=== PATIENT | male | born 1975 ===

== ENCOUNTER 2016-04-27 05:19 | Inpatient (IN) | payer MEDICAID, OTHER ==
--- NOTE | 2016-04-27 05:33 | Emergency Department Report ---
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 Last seen by staff at 1 AM walking around. Patient complains of left arm weakness only. States he had a history of previous CVA affecting his left side but made a full recovery. No pain reported. No aggravating or alleviating factors reported. - Related Data Allergies/Adverse Reactions: Allergies Allergy/AdvReac Type Severity Reaction Status Date / Time No Known Allergies Allergy Verified 04/27/16 05:56 ED Review of Systems ROS: Stated complaint: POSSIBLE STROKE Other details as noted in HPI Comment: All other systems reviewed and negative Other: Constitutional: No fevers chills Eyes: No eye pain visual changes ENT: No ear pain or throat pain Neck: Denies pain Respiratory: Denies cough wheezing shortness of breath Cardiovascular: Denies chest pain, palpitations, syncope GI: Denies abdominal pain, nausea, vomiting, diarrhea : Denies dysuria Musculoskeletal: Denies back pain, joint swelling Skin: Denies rash, lesions, erythema Neurologic: Denies headache Psychiatric: Denies suicidal ideation, hallucinations ED Neuro Physical Exam - General Suspected Stroke: Yes - NIHSS Assessment Interval: Baseline 1a. Level of Consciousness: alert 1b. LOC Questions: answers correctly 1c. LOC Commands: performs no tasks correctly 2. Best Gaze: normal 3. Visual: no visual loss 4. Facial Palsy: normal symmetrical movement 5b. Motor Arm Right: no drift 5a. Motor Arm Left: drift 6a. Motor Leg Left: no drift 6b. Motor Leg Right: no drift 7. Limb Ataxia: absent 8. Sensory: normal 9. Best Language: no aphasia 10. Dysarthria: normal 11. Extinction/Inattention: no abnormality Total Score: 3 Stroke Severity: Minor Stroke - Other Other exam information: General: No limitations, patient is alert in no acute distress Head exam: Atraumatic, normocephalic Eyes exam: Normal appearance, pupils equal reactive to light, extraocular movements intact ENT: Moist mucous membrane, normal oropharynx Neck exam: Normal inspection, full range of motion, no meningismus nontender Respiratory exam: Clear to auscultation bilateral, no wheezes, rales, crackles Cardiovascular: Normal rate and rhythm, normal heart sounds Abdomen: Soft, nondistended, and nontender, with normal bowel sounds, no rebound, or guarding Extremity: Full range of motion normal inspection no deformity Back: Normal Inspection, full range of motion, no tenderness Neurologic: Alert, oriented x3, see nihs Psychiatric: normal affect, normal mood Skin: Warm, dry, intact ED Course Vital Signs 04/27/16 04/27/16 04/27/16 05:45 06:02 06:03 Temperature 98.6 F Pulse Rate 186 H 108 H 98 H Respiratory 20 20 Rate Blood Pressure 143/102 143/103 Blood Pressure 143/102 128/100 [Left] O2 Sat by Pulse 98 98 Oximetry - Reevaluation(s) Reevaluation #1: 04/27/16 06:19 Upon return back from CT patient noted to have nonsustained V. tach. Amiodarone 150 mg given initially an EKG repeated. More obvious sinus rhythm with second EKG. Lopressor 5 mg IV given as recommended by cardiology 04/27/16 06:19 - Consultations Consultation #1: 04/27/16 05:[address] Mccoy neurologist agrees outside tpa window. Rec admission, ct angio. May call back if ct angio positive Consultation #2: 04/27/16 5:54 AM Case was discussed with Dr. Gaspar colon therapist nuclear unit operator suggested not to give amiodarone but to treat patient Lopressor - Lab Data Result diagrams: 04/27/16 05:25 04/27/16 05:25 Lab Results 04/27/16 04/27/16 04/27/16 Range/Units 05:25 05:25 05:25 WBC 10.4 (4.5-11.0) K/mm3 RBC 4.85 (3.65-5.03) M/mm3 Hgb 14.5 (11.8-15.2) gm/dl Hct 44.7 (35.5-45.6) % MCV 92 (84-94) fl MCH 30 (28-32) pg MCHC 32 (32-34) % RDW 15.1 (13.2-15.2) % Plt Count 330 (140-440) K/mm3 Lymph % (Auto) 21.9 (13.4-35.0) % [place] % (Auto) 8.0 H (0.0-7.3) % Eos % (Auto) 4.8 H (0.0-4.3) % Baso % (Auto) 1.0 (0.0-1.8) % Lymph # 2.3 (1.2-5.4) K/mm3 [place] # 0.8 (0.0-0.8) K/mm3 Eos # 0.5 H (0.0-0.4) K/mm3 Baso # 0.1 (0.0-0.1) K/mm3 Seg Neutrophils % 64.3 (40.0-70.0) % Seg Neutrophils # 6.7 (1.8-7.7) K/mm3 Sodium 138 (137-145) mmol/L Potassium 3.9 (3.6-5.0) mmol/L Chloride 99.1 (98-107) mmol/L Carbon Dioxide 26 (22-30) mmol/L Anion Gap 17 mmol/L BUN 15 (9-20) mg/dL Creatinine 1.4 (0.8-1.5) mg/dL Estimated GFR 56 ml/min BUN/Creatinine Ratio 10.71 % Glucose 119 H (75-100) mg/dL Calcium 8.9 (8.4-10.2) mg/dL Magnesium 1.8 (1.7-2.3) mg/dL Total Creatine Kinase 234 H (55-170) units/L CK-MB (CK-2) 3.9 (0.0-4.0) ng/mL CK-MB (CK-2) Rel Index 1.6 (0-4) Troponin T 0.033 H (0.00-0.029) ng/mL Triglycerides 101 (2-149) mg/dL Cholesterol 178 (50-199) mg/dL LDL Cholesterol Direct 112 (50-130) mg/dL HDL Cholesterol 46 (40-59) mg/dL Cholesterol/HDL Ratio 3.86 % - EKG Data -: EKG Interpreted by Me (possible A. fib 198 with rapid ventricular response wide QRS) 04/27/16 06:21 Repeat EKG after amiodarone shows sinus tach with nonsustained V. tach, LVH - Radiology Data Radiology results: report reviewed (CT head: No acute finding) - Medical Decision Making Patient requires admission to the hospital for cardiac and neurologic evaluation. Aspirin, amiodarone, and Lopressor given in the ED - Differential Diagnosis CVA, TIA, ICH, SVT, V. tach, A. fib Critical Care Time: Yes Critical care time in (mins) excluding proc time.: 20 Critical care attestation.: If time is entered above; I have spent that time in minutes in the direct care of this critically ill patient, excluding procedure time. ED Disposition Clinical Impression: Left arm weakness, Nonsustained ventricular tachycardia, Elevated troponin Disposition: OP ADMITTED IP TO THIS HOSP Is pt being admited?: Yes Does the pt Need Aspirin: Yes Condition: Stable Time of Disposition: 06:18 (Dr boswell/hosp)
[2016-04-27 05:37] LABS: Eosinophils % (Auto) 4.8 % (0.0-4.3); Hematocrit 44.7 % (35.5-45.6); Hemoglobin 14.5 gm/dl (11.8-15.2); Mean Corpuscular HGB Conc 32 % (32-34); Mean Corpuscular Hemoglobin 30 pg (28-32); Mean Corpuscular Volume 92 fl (84-94); Platelet Count 330 K/mm3 (140-440); Red Blood Count 4.85 M/mm3 (3.65-5.03); Red Cell Distribution Width 15.1 % (13.2-15.2); White Blood Count 10.4 K/mm3 (4.5-11.0)
[2016-04-27] MEDS ORDERED: CORDARONE 150 MG in D5W 100 ML IV ONE (05:50)
[2016-04-27 05:53] LABS: Creatine Kinase MB 3.9 ng/mL (0.0-4.0)
[2016-04-27] MEDS ORDERED: LOPRESSOR IV ONE ×3 (05:53→15:00)
--- NOTE | 2016-04-27 05:53 | Cat Scan Report ---
FINAL REPORT PROCEDURE: CT HEAD/BRAIN WO CON TECHNIQUE: Computerized tomography of the head was performed without contrast material. HISTORY: Suspected acute stroke. Acute neurologic deficits. COMPARISON: No prior studies are available for comparison. FINDINGS: Skull and scalp: Normal. Paranasal sinuses: Normal. Ventricles and subarachnoid spaces: Normal. Cerebrum: No evidence of hemorrhage, acute infarction or mass . Cerebellum and brainstem: No evidence of hemorrhage, acute infarction or mass. Vasculature: Normal. Comments: None. IMPRESSION: Overall negative CT brain without contrast with no CT evidence of intracranial hemorrhage acute finding.
[2016-04-27 05:54] LABS: BUN/Creatinine Ratio 10.71; Calcium 8.9 mg/dL (8.4-10.2); Chloride 99.1 mmol/L (98-107); Potassium 3.9 mmol/L (3.6-5.0)
[2016-04-27] MEDS ORDERED: CORDARONE 900 MG in D5W 482 ML IV SCH (06:00)
[2016-04-27 06:19] LABS: INR 0.89 (0.87-1.13)
[2016-04-27] MEDS ORDERED: ASPIRIN PO ONE (06:19)
[2016-04-27 06:20] LABS: Partial Thromboplastin Time 29.7 Sec. (24.2-36.6)
--- NOTE | 2016-04-27 06:48 | History and Physical Report ---
History of Present Illness Date of examination: 04/27/16 History of present illness: This is a 41-year-old man with a history of hypertension, coronary artery disease, CVA with no residual weakness, hypothyroidism, and her schizophrenia was brought to the emergency room for left arm weakness and slurred speech. The aide at bedside states that he was last seen at 1:30 asking for a sleeping pill. At 4:30 he was seen again complaining of left arm weakness, his speech was slurred, he was very diaphoretic and his blood pressure was very elevated. He was sent to the emergency room for further evaluation. The patient is admitted anchor for suicide ideation. In the emergency room and was found to be in nonsustained V. tach, he was given Lopressor Patient denies chest pain, palpitation, shortness of breath, cough, abdominal pain, hematochezia, dysuria, frequency, fever chills, polydipsia polyuria, hot or cold intolerance, easy bruisability, or rash or bleeding from mucosal membrane, rhinorrhea, epistaxis, earache, tinnitus, blurry vision, eye discharge , anxiety, depression. Other review of systems negative PAST SURGICAL HISTORY: CABG SOCIAL HISTORY: Admits to tobacco, marijuana, no alcohol FAMILY HISTORY: Coronary artery disease Medications and Allergies Allergies Allergy/AdvReac Type Severity Reaction Status Date / Time No Known Allergies Allergy Verified 04/27/16 05:56 Home Medications Medication Instructions Recorded Confirmed Last Taken Type Aspirin BABY CHEW TAB 81 mg PO DAILY 04/27/16 04/27/16 Unknown History Clonidine 0.2 mg PO BID 04/27/16 04/27/16 Unknown History Clopidogrel 75 mg PO DAILY 04/27/16 04/27/16 Unknown History Coreg 25 mg PO BID 04/27/16 04/27/16 Unknown History Diovan Hct 320-12.5 mg 320 mg PO DAILY 04/27/16 04/27/16 Unknown History Lasix TAB 40 mg PO DAILY 04/27/16 04/27/16 Unknown History Levothyroxine 60 mg PO QAM 04/27/16 04/27/16 Unknown History Minoxidil 5 mg PO DAILY 04/27/16 04/27/16 Unknown History Norvasc 10 mg PO DAILY 04/27/16 04/27/16 Unknown History hydrALAZINE 50 mg PO TID 04/27/16 04/27/16 Unknown History Exam - Physical Exam Narrative exam: Gen. appearance: Patient lying in bed, no apparent distress HEENT: Normocephalic, atraumatic, pupils equally round and reactive to light, extraocular movement intact, and no sclericterus,. No JVD or thyromegaly or nodule,neck supple, no carotid bruit ,mucous membranes moist, no exudate or erythema Heart: S1, S2, regular rate and rhythm Lungs: Clear to auscultation bilaterally, breathing comfortable Abdomen: Positive bowel sounds, nontender, nondistended, no organomegaly Extremity: No edema, cyanosis, clubbing Skin: No rash, nodules, warm, dry Neuro: Oriented 3, cranial nerves II-12 intact, speech is slurred, left arm 3/ 5 - Constitutional Vitals: Temp Pulse Resp BP Pulse Ox 98.6 F 98 H 28 H 128/100 99 04/27/16 05:45 04/27/16 06:03 04/27/16 06:25 04/27/16 06:03 04/27/16 06:25 Results - Labs CBC & Chem 7: 05/06/16 04:26 05/02/16 04:44 Labs: Abnormal lab results 04/27/16 04/27/16 04/27/16 Range/Units 05:25 05:25 05:25 [place] % (Auto) 8.0 H (0.0-7.3) % Eos % (Auto) 4.8 H (0.0-4.3) % Eos # 0.5 H (0.0-0.4) K/mm3 PT 11.9 L (12.2-14.9) Sec. Glucose 119 H (75-100) mg/dL Total Creatine Kinase 234 H (55-170) units/L Troponin T 0.033 H (0.00-0.029) ng/mL - Imaging and Cardiology EKG: image reviewed (nonsustained V. tach, 128) CT Scan - head: report reviewed Assessment and Plan Acute CVA Nonsustained V. tach Suicidal ideation Hypertension Hyperlipidemia Hypothyroidism Schizophrenia Admits medicine Obtain MRI, MRA of the head and neck, echo Do neurochecks, swallow screen, consult neurology Consult physical, occupational, speech therapy Check cardiac enzymes, consult cardiology Start aspirin, statin, DVT prophylaxis Start beta jennifer per cardiology Start IV hydralazine as neeed for further blood pressure control Placed on suicide precaution, patient is 1013 Continue appropriate outpatient medications
[2016-04-27] MEDS ORDERED: APRESOLINE IV PRN (06:51)
--- NOTE | 2016-04-27 07:48 | Cat Scan Report ---
CTA NECK: HISTORY: Left arm weakness, CVA. TECHNIQUE: Helical CT following IV contrast. Sagittal and coronal reformatted images. 3D volume rendering technique. Stenosis was calculated using NASCET criteria. FINDINGS: The visualized aortic arch, innominate artery and proximal bilateral subclavian arteries are widely patent. Both carotid systems are patent throughout with less than 10% stenosis. No evidence for occlusion, dissection or aneurysmal dilatation. Minimal partially calcified plaques are noted in both carotid bulbs. The cervical vertebral arteries are patent as well. The left vertebral artery arises from the aortic arch and is nondominant. IMPRESSION: Unremarkable CTA of the neck. No hemodynamically significant stenosis or occlusion.
--- NOTE | 2016-04-27 07:57 | Cat Scan Report ---
CTA HEAD: HISTORY: Left arm weakness, CVA. TECHNIQUE: Helical CT images following IV contrast with 0.625 mm reconstructions. Sagittal and coronal reconstructions. Rotational MIP images. FINDINGS: A focal abrupt occlusion is suspected in the distal, small branch of the right MCA this appears to be within the right M4 segment. This is best demonstrated on images 439, series 2. The remainder of the right MCA distribution appears patent with less than 20% stenosis. The right NAOMI, left NAOMI, and left MCA are widely patent with less than 20% stenosis. There appears to be occlusion of the distal vertebral arteries bilaterally and proximal one half of the basilar artery. There is reconstitution of flow in the distal basilar artery from multiple small collateral vessels around the brainstem and cerebellar vermis. There are large bilateral posterior communicating arteries which are widely patent. The bilateral alteration tailor apprentice are widely patent with less than 20% stenosis. Impression: A focal occlusion is suspected in a distal, small branch of the right MCA within the right M4 segment, see above. These findings were relayed to the patient's RN, Aaron Guevara at 0740 hours. The patient was in the emergency room but had not yet been assigned to a hospitalist. The patient was reported to be outside the window for TPA administration. 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 Most of the posterior circulation appears to arise from large bilateral posterior communicating arteries.
[2016-04-27] MEDS ORDERED: SODIUM CHLORIDE FLUSH SYRINGE 10 ML IV PRN (09:49)
[2016-04-27] MEDS ORDERED: ZOFRAN IV PRN (09:49)
[2016-04-27] MEDS ORDERED: ASPIRIN PO SCH (10:00)
[2016-04-27] MEDS ORDERED: LOVENOX SUB-Q SCH (10:00)
[2016-04-27] MEDS ORDERED: COREG PO SCH ×2 (10:00)
--- NOTE | 2016-04-27 12:16 | Admit Criteria Form ---
Admission Criteria Documentation: TELEMETRY CARE Telemetry Admission Guidelines (Place 'X' for any and all applicable criteria): Admission to telemetry [A] may be indicated for ANY ONE of the following(1)(2)(3 )(4)(5): [ ]I. Cardiac disease, including ANY ONE of the following (9)(10)(11)(12)(13 ): [ ]a) Postacute CA [ ]b) Low-risk patients with ST-segment elevation CA who have undergone successful percutaneous coronary intervention [ ]c) Unstable angina [ ]d) Suspected CA (until it is ruled out) [ ]e) Post cardiac surgery (first 48 to 72 hours unless complications occur) [ ]f) Acute arrhythmias (including significant tachycardia or bradycardia) [B] [ ]g) Firing of an implantable cardioverter defibrillator [C] [ ]h) Suspected pacemaker or implantable cardioverter defibrillator malfunction (10) [ ]i) New administration or adjustment of an antiarrhythmic drug [D ] [ ]j) Child admitted for acute congestive heart failure [ ]j) Long QT syndrome [ ]k) Advanced heart block (eg, second-degree Mobitz type II, third- degree heart block) [ ]l) Acute myocarditis or pericarditis [ ]m) Short-term (ambulatory or inpatient) monitoring after a cardiac procedure as indicated by ANY ONE of the following [E]: [ ]i) Electrophysiologic studies [ ]ii) Percutaneous coronary intervention with stent placement [ ]iii) Pacemaker placement with cardiac conduction defect [ ]iv) Implantable cardiac defibrillator placement [ ]II. Drug overdose or poisoning with substance that causes arrhythmias or QT prolongation (eg, phenothiazines, sympathomimetic agents, cyclic antidepressants, digitalis, antiarrhythmic drugs)(15) [ ]III. Short-term (ambulatory or inpatient) monitoring after therapeutic or diagnostic procedure requiring conscious sedation or anesthesia (eg, endoscopy, elective cardioversion) [X ]IV. Acute cerebrovascular even[F](18) [ ]V. Massive blood transfusion (eg, at least 10 units of packed red blood cells in 24 hours) [ ]. Variceal bleeding after endoscopy, sclerotherapy, or IV vasopressin [ ]VII. Uncorrected electrolyte abnormalities associated with an increased risk of dangerous arrhythmia [G]; examples include [ ]a) Hyperkalemia with attributable ECG changes [ ]b) Potassium greater than 6.5 mmol/L (mEq/L) in a patient without history of chronic renal disease [ ]c) Prolonged QT attributed to hypokalemia, hypomagnesemia, or hypocalcemia [ ]VIII.Unexplained syncope or other neurologic event suspected of being due to arrhythmia due to a finding that increases risk; examples include(19)(20)(21): [ ]a) High-risk ECG findings (eg, bifascicular block, bradycardia, abnormal QT interval, ventricular pre- excitation) [ ]b) History of previous syncope due to arrhythmia [ ]c) Abnormal ventricular function (eg, reduced ejection fraction ) [ ]d) Exertional or supine syncope [ ]e) Concerning syncope characteristics (eg, sudden loss of consciousness without prodrome) [ ]f) Family history of sudden [ ]g) Use of arrhythmogenic medication [ ]h) Suspected cardiac ischemia [ ]i) Known channelopathy (eg, long QT syndrome, Brugada syndrome, or catecholaminergic paroxysmal ventricular tachycardia) [ ]j) Known structural heart disease (eg, hypertrophic cardiomyopathy , severe valvular disease) [ ]k) Palpitations preceding syncope The original [employer] content created by [employer] has been revised. The portions of the content which have been revised are identified through the use of italic text or in bold, and [employer] has neither reviewed nor approved the modified material. All other unmodified content is copyright [employer]. Please see references footnoted in the original [employer] edition 2016 Admission Criteria Met: Yes
--- NOTE | 2016-04-27 12:58 | Magnetic Resonance Report ---
MRI of the brain without contrast. History: CVA/left arm weakness. Findings: There is a 9 mm focus of restricted diffusion in the medial aspect of the right cerebellar hemisphere. There is another area of restricted diffusion in the lateral aspect of the right MCA territory corresponding to the abnormality demonstrated on CT angiography performed earlier today. This area of restricted diffusion and associated edema measures 3.7 cm in maximum transverse dimension. There is a chronic lacune in the left faustina. A chronic lacunar infarct is seen in the right periventricular white matter. No additional areas of restricted diffusion are seen. There are no masses or extra-axial collections. The pituitary appears normal. The ventricles are normal in size and contour. There is evidence of mild chronic ethmoid sinus disease. Impression: 1. Acute infarcts are seen in the right lateral MCA territory and in the medial right cerebellar hemisphere as detailed above. 2. Chronic lacunar infarcts are seen in the left faustina and right periventricular white matter. Comment: These findings were given by telephone to the patient's nurse Shawn in the emergency room at 12:50 PM on April 27, 2016.
[2016-04-27] MEDS ORDERED: CORDARONE IV ONE (13:43)
--- NOTE | 2016-04-27 14:21 | Consultation ---
Addendum entered and electronically signed by SABA SMITH MD 04/27/16 19:01 : Patient is a 41-year-old man who is currently inpatient at [facility]. Was transferred to this emergency room for suspected stroke. There was slurred speech and left hemiparesis. During his emergency room course, treated with several bursts of sustained wide complex tachycardia, which prompted a cardiac consultation. The patient is a poor historian, not appear to comprehend and provide appropriate answers to questions. Review of the chart reports no chest pain, shortness of breath or palpitations or any cardiac symptoms. Currently on the telemetry unit, he appears comfortable in no acute respiratory distress. Report from the nursing staff, states that the patient has failed a swallowing evaluation. A review of his ECGs is consistent with recurrent, nonsustained ventricular tachycardia. Review of his cardiac laboratory values, appeared consistent with a non-ST elevation myocardial infarction. Recommend: We'll treat the patient with a beta jennifer, aspirin, topical nitrates and intravenous heparin. Heparin will be dosed at low intensity, in the setting of his acute CVA. Oral medications will be given at this time, due to the patient' s swallowing difficulty. Echocardiogram for left ventricular function assessment. Ultimately, invasive cardiac evaluation for his acute coronary syndrome will depend on his clinical status with respect to his acute CVA. Original Note: History of Present Illness Consult date: 04/27/16 Consult reason: other (NSVT) History of present illness: This is a 41yr old male currently an inpatient at [facility] for suicidal ideation. He was sent to this hospital with left upper extremity weakness and slurred speech. He is currently undergoing workup for acute CVA. His presenting ECG shows a non-sustained ventricular tachycardia treated with IV amiodarone and IV metoprolol while in the ED. Laboratory studies reports a normal magnesium of 1.8 and normal potassium of 3.9. Cardiac consultation requested. Medications and Allergies Allergies Allergy/AdvReac Type Severity Reaction Status Date / Time No Known Allergies Allergy Verified 04/27/16 05:56 Home Medications Medication Instructions Recorded Confirmed Last Taken Type Aspirin BABY CHEW TAB 81 mg PO DAILY 04/27/16 04/27/16 Unknown History Clonidine 0.2 mg PO BID 04/27/16 04/27/16 Unknown History Clopidogrel 75 mg PO DAILY 04/27/16 04/27/16 Unknown History Coreg 25 mg PO BID 04/27/16 04/27/16 Unknown History Diovan Hct 320-12.5 mg 320 mg PO DAILY 04/27/16 04/27/16 Unknown History Lasix TAB 40 mg PO DAILY 04/27/16 04/27/16 Unknown History Levothyroxine 60 mg PO QAM 04/27/16 04/27/16 Unknown History Minoxidil 5 mg PO DAILY 04/27/16 04/27/16 Unknown History Norvasc 10 mg PO DAILY 04/27/16 04/27/16 Unknown History hydrALAZINE 50 mg PO TID 04/27/16 04/27/16 Unknown History Active Meds: Active Medications Acetaminophen (Tylenol) 650 mg PO Q4H PRN PRN Reason: Pain, Mild (1-3) Aspirin (Aspirin) 325 mg PO QDAY [facility] Last Admin: 04/27/16 11:04 Dose: Not Given Carvedilol (Coreg) 3.125 mg PO BID [facility] Last Admin: 04/27/16 11:03 Dose: Not Given Enoxaparin Sodium (Lovenox) 40 mg SUB-Q QDAY [facility] Last Admin: 04/27/16 11:04 Dose: 40 mg Hydralazine HCl (Apresoline) 5 mg IV Q6HR PRN PRN Reason: Hypertension Ondansetron HCl (Zofran) 4 mg IV Q8H PRN PRN Reason: N/V unrelieved by Reglan Simvastatin (Zocor) 20 mg PO QHS [facility] Sodium Chloride (Sodium Chloride Flush Syringe 10 Ml) 10 ml IV PRN PRN PRN Reason: LINE FLUSH Physical Examination Vital Signs Temp Pulse Resp BP Pulse Ox 98.6 F 186 H 20 143/102 99 04/27/16 05:45 04/27/16 05:45 04/27/16 05:45 04/27/16 05:45 04/27/16 05:45 General appearance: no acute distress HEENT: Positive: PERRL Neck: Positive: trachea midline Cardiac: Positive: Reg Rate and Rhythm Lungs: Positive: Decreased Breath Sounds Results 04/27/16 05:25 04/27/16 05:25 Assessment and Plan Acute CVA Dysphagia NSVT Suicidal ideation -inpatient at [facility] Plans: Check a TSH. IV metoprolol every 4hrs for suppression of NSVT. Rectal aspirin 300mg daily. Topical nitrates every 6hrs.
--- NOTE | 2016-04-27 14:50 | Magnetic Resonance Report ---
MRA OF THE OSAGE OF [place]: HISTORY: Stroke. PROCEDURE: 3-D [id number] technique. FINDINGS: The visualized internal carotid arteries, the anterior cerebral and middle cerebral arteries are unremarkable. The area of occlusion seen on CT angiography performed today in the M4 segment of the right middle cerebral artery cannot be identified on this study due to technical factors. The vertebral arteries are occluded bilaterally with signal seen in the distal basilar artery and the posterior cerebral arteries. The posterior communicating arteries are patent. IMPRESSION: 1. 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 There is patency of the distal basilar artery and the alumni relations officer are patent with normal bilateral posterior communicating arteries. 2. The occluded right M4 segment of the MCA is not identified on this study, but is clearly identified on the CT angiogram performed today.
[2016-04-27] MEDS ORDERED: LOPRESSOR IV SCH (15:00)
[2016-04-27] MEDS ORDERED: ASPIRIN PR SCH (15:00)
[2016-04-27 16:20] LABS: Creatine Kinase MB 53.6 ng/mL (0.0-4.0)
[2016-04-27] MEDS ORDERED: HEPARIN 10,000 UNITS/10 ML IV ONE (18:58)
[2016-04-27] MEDS: LOPRESSOR IV SCH ×2 (19:47→21:49)
[2016-04-27 21:44] LABS: Hematocrit 43.8 % (35.5-45.6); Hemoglobin 14.4 gm/dl (11.8-15.2)
[2016-04-27] MEDS: ZOCOR PO SCH (21:48)
[2016-04-27] MEDS: HEPARIN/ 0.45% NACL-25,000 UNIT/500 ML 500 ML IV SCH (21:50)
[2016-04-27 21:56] LABS: INR 0.99 (0.87-1.13)
[2016-04-27 21:57] LABS: Partial Thromboplastin Time 31.3 Sec. (24.2-36.6)
[2016-04-27 22:02] LABS: Creatine Kinase MB 58.4 ng/mL (0.0-4.0)
[2016-04-28] MEDS: LOPRESSOR IV SCH ×6 (01:40→23:18)
[2016-04-28] MEDS: NITRO-BID 2% TP SCH ×5 (05:50→17:56)
[2016-04-28] MEDS: ASPIRIN PR SCH (09:44)
--- NOTE | 2016-04-28 11:01 | Progress Note ---
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 Devon Uriostegui of neurology to see patient today, continue aspirin, will obtain Dopplers of the carotids, continue heparin drip, will likely need long time anticoagulation, asa and statin 2. NSTEMI AND NONSUSTAINED V. TACH Cardiology input appreciated will treat with aspirin and beta jennifer , statin and nitrates, and heparin ggt, patient will likely benefit from an MPI versus angiogram, follow-up echocardiogram 3. Dysphagia Keep nothing by mouth, will obtain modified barium swallow 4. Suicidal Ideation maintain 1;1 sitter (came from [place]- is a resident there) History Interval history: continues to have Left arm weakness, denies ARROYO, CP , or palpitations Hospitalist Physical - Physical exam Narrative exam: General: Patient appears well in no distress HEENT: MMM, EOMI cardiac: S1-S2 heard lungs: clear to auscultation, abdomen: soft, nontender, nondistended bowel sounds positive extremities: no edema clubbing or cyanosis Skin: no rash or lesion Neuro: Slurred speech, left UE weakness - Constitutional Vitals: Temp Pulse Resp BP Pulse Ox 98.2 F 80 22 146/96 100 04/28/16 08:45 04/28/16 09:44 04/28/16 08:45 04/28/16 09:44 04/28/16 08:45 General appearance: Present: no acute distress Results - Labs CBC & Chem 7: 04/27/16 21:13 04/27/16 05:25 Labs: Laboratory Last Values WBC 10.4 K/mm3 (4.5-11.0) 04/27/16 05:25 RBC 4.85 M/mm3 (3.65-5.03) 04/27/16 05:25 Hgb 14.4 gm/dl (11.8-15.2) 04/27/16 21:13 Hct 43.8 % (35.5-45.6) 04/27/16 21:13 MCV 92 fl (84-94) 04/27/16 05:25 MCH 30 pg (28-32) 04/27/16 05:25 MCHC 32 % (32-34) 04/27/16 05:25 RDW 15.1 % (13.2-15.2) 04/27/16 05:25 Plt Count 324 K/mm3 (140-440) 04/27/16 21:13 Lymph % (Auto) 21.9 % (13.4-35.0) 04/27/16 05:25 [place] % (Auto) 8.0 % (0.0-7.3) H 04/27/16 05:25 Eos % (Auto) 4.8 % (0.0-4.3) H 04/27/16 05:25 Baso % (Auto) 1.0 % (0.0-1.8) 04/27/16 05:25 Lymph # 2.3 K/mm3 (1.2-5.4) 04/27/16 05:25 [place] # 0.8 K/mm3 (0.0-0.8) 04/27/16 05:25 Eos # 0.5 K/mm3 (0.0-0.4) H 04/27/16 05:25 Baso # 0.1 K/mm3 (0.0-0.1) 04/27/16 05:25 Seg Neutrophils % 64.3 % (40.0-70.0) 04/27/16 05:25 Seg Neutrophils # 6.7 K/mm3 (1.8-7.7) 04/27/16 05:25 PT 13.0 Sec. (12.2-14.9) 04/27/16 21:13 INR 0.99 (0.87-1.13) 04/27/16 21:13 APTT 31.3 Sec. (24.2-36.6) 04/27/16 21:13 Thrombin Time 16.3 Sec. (15.1-19.6) 04/27/16 05:25 Heparin Anti-Xa Level 0.18 U.I./ml (0.3-0.7) L 04/28/16 04:16 Sodium 138 mmol/L (137-145) 04/27/16 05:25 Potassium 3.9 mmol/L (3.6-5.0) 04/27/16 05:25 Chloride 99.1 mmol/L (98-107) 04/27/16 05:25 Carbon Dioxide 26 mmol/L (22-30) 04/27/16 05:25 Anion Gap 17 mmol/L 04/27/16 05:25 BUN 15 mg/dL (9-20) 04/27/16 05:25 Creatinine 1.4 mg/dL (0.8-1.5) 04/27/16 05:25 Estimated GFR 56 ml/min 04/27/16 05:25 BUN/Creatinine Ratio 10.71 % 04/27/16 05:25 Glucose 119 mg/dL (75-100) H 04/27/16 05:25 POC Glucose 108 (70-105) H 04/27/16 05:28 Calcium 8.9 mg/dL (8.4-10.2) 04/27/16 05:25 Magnesium 1.8 mg/dL (1.7-2.3) 04/27/16 05:25 Total Creatine Kinase 771 units/L (55-170) H 04/27/16 21:13 CK-MB (CK-2) 58.4 ng/mL (0.0-4.0) H 04/27/16 21:13 CK-MB (CK-2) Rel Index 7.5 (0-4) H 04/27/16 21:13 Troponin T 1.200 ng/mL (0.00-0.029) H* D 04/27/16 15:32 Triglycerides 101 mg/dL (2-149) 04/27/16 05:25 Cholesterol 178 mg/dL (50-199) 04/27/16 05:25 LDL Cholesterol Direct 112 mg/dL (50-130) 04/27/16 05:25 HDL Cholesterol 46 mg/dL (40-59) 04/27/16 05:25 Cholesterol/HDL Ratio 3.86 % 04/27/16 05:25 TSH 2.220 mlU/mL (0.270-4.200) 04/28/16 04:16
--- NOTE | 2016-04-28 11:09 | Progress Note ---
Addendum entered and electronically signed by SABA SMITH MD 04/28/16 19:29 : Echocardiogram shows a severe cardiomyopathy, and evidence of a small apical left ventricular thrombus. Patient is already on intravenous heparin, and routine anti-ischemic and heart failure therapy. Further cardiac evaluation will depend on clinical course. He is at elevated risk invasive cardiac evaluation, in the setting of acute CVA with left hemiparesis. Original Note: Assessment and Plan Acute CVA with dysphagia NSTEMI NSVT -normal TSH Suicidal ideation -inpatient at [facility] Plan: Echocardiogram for left ventricular function assessment. Continue beta jennifer, aspirin, topical nitrates and intravenous heparin. Invasive cardiac evaluation for his acute coronary syndrome will depend on his clinical status with respect to his acute CVA. Subjective Date of service: 04/28/16 Interval history: No cardiac events reported overnight. Sinus rhythm on telemetry. Objective Vital Signs Temp Pulse Pulse Resp BP BP Pulse Ox 04/28/16 09:44 80 146/96 04/28/16 08:45 98.2 F 80 22 149/96 100 04/28/16 05:50 80 158/105 04/28/16 05:48 80 158/105 04/28/16 04:09 98.3 F 83 18 134/83 04/28/16 01:40 92 H 154/105 04/28/16 00:42 97 H 04/27/16 23:55 98.5 F 91 H 18 145/111 04/27/16 21:49 89 152/88 04/27/16 20:26 100 04/27/16 19:57 100.1 F H 92 H 18 163/131 100 04/27/16 19:54 120 H 100 04/27/16 19:47 92 H 163/131 04/27/16 16:00 99.1 F 89 22 157/93 99 04/27/16 14:44 100 H 157/119 04/27/16 14:08 98.8 F 91 H 24 157/119 99 - Physical Examination General: No Apparent Distress HEENT: Positive: PERRL Neck: Positive: trachea midline Cardiac: Positive: Reg Rate and Rhythm - Labs and Meds Cardiac Enzymes 04/27/16 04/27/16 04/27/16 Range/Units 13:43 15:32 21:13 CK-MB (CK-2) 38.0 H 53.6 H 58.4 H (0.0-4.0) ng/mL Coagulation 04/27/16 Range/Units 21:13 PT 13.0 (12.2-14.9) Sec. INR 0.99 (0.87-1.13) APTT 31.3 (24.2-36.6) Sec. CBC 04/27/16 Range/Units 21:13 Hgb 14.4 (11.8-15.2) gm/dl Hct 43.8 (35.5-45.6) % Plt Count 324 (140-440) K/mm3 - Imaging and Cardiology EKG: image reviewed (nonsustained V. tach, 128)
--- NOTE | 2016-04-28 14:11 | Echocardiography Report ---
Transthoracic Echocardiogram Indication: CVA BP: 156/114 HR: 101 Conclusions *1. Severe dilated cardiomyopathy, EF 15%. *2. Small apical LV thrombus. Findings Procedure Info: The study quality is good. Left Ventricle: The left ventricular chamber size is severely dilated. Mild to moderate concentric left ventricular hypertrophy is observed. There is evidence of a dilated cardiomyopathy. Severe global hypokinesis of the left ventricle is observed. Global left ventricular systolic function is severely decreased. The estimated ejection fraction is 10-15%. A thrombus is visualized in the left ventricular apex. Left Atrium: The left atrium is mild to moderately dilated. Right Ventricle: The right ventricle wall thickness is normal. The right ventricle is slightly dilated. The right ventricular global systolic function is mildly reduced. Right Atrium: The right atrium is mildly dilated. Aortic Valve: The aortic valve is trileaflet. The aortic valve leaflets are mildly thickened. Mild aortic leaflet calcification is visualized. Systolic excursion of the aortic valve is normal. There is trace of aortic regurgitation. There is no evidence of aortic stenosis. Mitral Valve: The mitral valve leaflets appear myxomatous. The mitral valve leaflets are mildly thickened. There is mild mitral regurgitation. There is no evidence of mitral stenosis. Tricuspid Valve: There is mild tricuspid regurgitation. The right ventricular systolic pressure is calculated at 23 mmHg. The right ventricular systolic pressure is estimated to be 20-25 mmHg. No pulmonary hypertension is noted. There is no tricuspid stenosis. Pulmonic Valve: The pulmonic valve is not well visualized. There is trace pulmonic regurgitation. There is no pulmonic stenosis. Pericardium: There is no pericardial effusion. No pleural effusion is present. Aorta: The aortic root is not well visualized. There is no dilatation of the aortic root. Venous: The inferior vena cava appears normal in size. There is a greater than 50% respiratory change in the inferior vena cava dimension. Measurements Chambers MM Name Value Normal Range IVSd (MM) 1.38 cm (0.6 - 1.1) LVPWd (MM) 1.21 cm (0.6 - 1.1) IVS:LVPW ratio 1.14 ratio - LVIDd (MM) 6.05 cm (3.7 - 5.6) LVIDs (MM) 4.8 cm (2 - 2.8) LV FS (Teichholz) (MM) 20.7 % - LV FS (cube) (MM) 20.7 % - EF Teichholz (MM) 41 % - Ao root diameter (MM) 3.8 cm (2 - 3.7) LA dimension (AP) MM 3.8 cm (1.9 - 4) LA:Ao ratio (MM) 1 ratio - AV cusp separation (MM) 2 cm (1.5 - 2.6) Chambers 2D Name Value Normal Range IVSd (2D) 1.43 cm (0.6 - 1.1) LVPWd 1.4 cm - LVPWd (2D) 1.04 cm (0.6 - 1.1) IVS:LVPW ratio (2D) 1.38 ratio - LVIDd 5.8 cm - LVIDs 5.6 cm - LVIDd (2D) 5.75 cm (3.7 - 5.6) LVIDs (2D) 5.55 cm (2 - 3.8) LV FS (Teichholz) (2D) 3.48 % - LV FS (cube) (2D) 3.48 % - LV EF (2D) 10 % - EF Teichholz (2D) 7.36 % - LA dimension 3.9 cm - Ao root diameter (2D) 3.5 cm (2 - 3.7) LA dimension (AP) 2D 3.9 cm (1.9 - 4) LA:Ao ratio (2D) 1.11 ratio - Volumes/Mass Name Value Normal Range LA ESV SP 4CH (MOD) 50 ml - LV EDV SP 4CH (MOD) 206 ml - LV ESV SP 4CH (MOD) 138 ml - EF SP 4CH (MOD) 33 % - Diastolic/Systolic Function Name Value Normal Range MV E-wave Vmax 0.95 m/sec - MV deceleration time 197 msec - LV septal e' Vmax 0.04 m/sec - LV lateral e' Vmax 0.04 m/sec - LV E:e' septal ratio 24.4 ratio - LV E:e' lateral ratio 23.8 ratio - Aortic Valve Name Value Normal Range AV VTI 17.1 cm - AV mean gradient 2 mmHg - LVOT diameter 2.6 cm - LVOT Vmax 0.78 m/sec - LVOT peak gradient 2 mmHg - Tricuspid Valve Name Value Normal Range TR Vmax 2.22 m/sec - TR peak gradient 20 mmHg - RAP 3 mmHg - RVSP 23 mmHg - Pulmonic Valve/Qp:Qs Name Value Normal Range PV Vmax 0.59 m/sec - PV peak gradient 1 mmHg - PV acceleration time 158 msec -
[2016-04-28] MEDS: HEPARIN/ 0.45% NACL-25,000 UNIT/500 ML 500 ML IV SCH (14:31)
--- NOTE | 2016-04-28 15:17 | Fluoroscopy Report ---
MODIFIED BARIUM SWALLOW INDICATION: Cough. Not tolerating thin liquids. COMPARISON: None similar. FINDINGS: Fluoroscopy provided by radiologist for speech therapist to assess the swallowing mechanism. Food items of various consistencies given. Few missing teeth noted. No aspiration. IMPRESSION: Successful modified barium swallow. Please refer to detailed report from speech pathologist. Thank you for the opportunity to participate in this patient's care.
[2016-04-28] MEDS: ZOCOR PO SCH (23:20)
[2016-04-29 05:14] LABS: Hematocrit 41.7 % (35.5-45.6); Hemoglobin 13.5 gm/dl (11.8-15.2)
[2016-04-29] MEDS: LOPRESSOR IV SCH ×2 (06:21→06:24)
[2016-04-29] MEDS: NITRO-BID 2% TP SCH ×4 (06:21→17:34)
--- NOTE | 2016-04-29 09:25 | Progress Note ---
Addendum entered and electronically signed by AYAAN GARG MD 11:35: Agree with Mrs Velez assessment and plan Frequent episodes of non-sustained ventricular tachycardia noted on telemetry Patient also states that he has received a stent 4 months ago in [facility] Recommend to change asa to po, start plavix, po metoprolol, lipitor and amiodarone Continue IV heparin for LV thrombus Although he is at high risk given recent CVA, Patient will need an invasive evaluation of his coronary anatomy prior to discharge. Will tentatively schedule for tomorrow unless other restricting events occur. Original Note: Assessment and Plan Acute CVA NSTEMI NSVT -normal TSH Suicidal ideation -inpatient at [facility] Echocardiogram shows a severe cardiomyopathy, and evidence of a small apical left ventricular thrombus. Plan: Continue beta jennifer, aspirin, topical nitrates and intravenous heparin. Will add oral amiodarone to suppress NSVT. Invasive cardiac evaluation for his acute coronary syndrome will depend on his clinical status with respect to his acute CVA. Subjective Date of service: 04/29/16 Interval history: Patient denies chest pain, shortness of breath and palpitations. Objective Vital Signs Temp Pulse Pulse Resp BP BP Pulse Ox 04/29/16 08:39 97 04/29/16 08:00 98.2 F 79 18 141/99 93 04/29/16 06:24 154/97 04/29/16 06:21 89 141/105 04/29/16 04:50 97.4 F L 77 19 138/85 99 04/29/16 00:00 98.1 F 87 20 159/102 100 04/28/16 23:18 94 H 159/102 04/28/16 21:21 100 04/28/16 19:24 85 04/28/16 16:06 98.2 F 85 24 132/86 04/28/16 16:00 81 04/28/16 13:15 98.1 F 76 22 134/94 04/28/16 10:00 98 04/28/16 09:44 80 146/96 - Physical Examination General: No Apparent Distress HEENT: Positive: PERRL Neck: Positive: trachea midline Cardiac: Positive: Reg Rate and Rhythm Lungs: Positive: Decreased Breath Sounds - Labs and Meds CBC 04/29/16 Range/Units 04:23 Hgb 13.5 (11.8-15.2) gm/dl Hct 41.7 (35.5-45.6) % Plt Count 286 (140-440) K/mm3 - Imaging and Cardiology EKG: image reviewed (nonsustained V. tach, 128)
[2016-04-29] MEDS: CORDARONE PO SCH ×2 (09:34→22:15)
[2016-04-29] MEDS: LOPRESSOR PO SCH ×2 (09:36→22:16)
[2016-04-29] MEDS: ASPIRIN PR SCH (09:37)
[2016-04-29] MEDS ORDERED: NACL 0.9% 500 ML 500 ML IV SCH (12:00)
--- NOTE | 2016-04-29 13:22 | Progress Note ---
Assessment and Plan Embolic strokes Recommend: Pt will likely need to be anticoagulated in light of his areas of stenosis in the brain. In this case aspirin and plavix should be stopped. AWait final cardiac wrokup for final decision. Daily statin +-JUDITH, might help with anticoagulation decision as well, will defer to cardiology PT/OT/ST VTE prophylaxis continue care for his medical and psychiatric issues as you are doing Thank you for this consult. Call with questions. Subjective Date of service: 04/29/16 Interval history: Pt seen initially by teleneuro. Pt with embolic strokes on the right, anterior and posterior circulation. Has significant stenosis in both areas as well. today with no new complaints. Objective - Vital Sign Vital Signs - 12hr 04/29/16 04/29/16 04/29/16 04:50 06:21 06:24 Temperature 97.4 F L Pulse Rate 89 Pulse Rate [ 77 Right From Monitor] Respiratory 19 Rate Blood Pressure 141/105 Blood Pressure 138/85 154/97 [Right Arm] O2 Sat by Pulse 99 Oximetry 04/29/16 04/29/16 04/29/16 08:00 08:39 09:36 Temperature 98.2 F Pulse Rate Pulse Rate [ 79 Right From Monitor] Respiratory 18 Rate Blood Pressure 141/91 Blood Pressure 141/99 [Right Arm] O2 Sat by Pulse 93 97 Oximetry 04/29/16 11:38 Temperature 98.3 F Pulse Rate 78 Pulse Rate [ 72 Right From Monitor] Respiratory 20 Rate Blood Pressure Blood Pressure 144/104 [Right Arm] O2 Sat by Pulse 98 Oximetry - EENT EENT: PERRL - Respiratory Respiratory: lungs clear - Neurologic Cranial nerve examination: facial droop Motor examination - right side: 5/5: biceps, triceps, wrist flexion, wrist extension, requirements manager, hip flexors, knee extensors, dorsiflexion, toe extension (EHL) , plantarflexion Motor examination - left side: 1/5: biceps, triceps, wrist flexion, wrist extension, requirements manager, hip flexors, knee extensors, dorsiflexion, toe extension (EHL) , plantarflexion Reflexes: 1+: ankle, bicep, knee, tricep - Laboratory Findings CBC and BMP: 04/29/16 04:23 04/27/16 05:25 Abnormal Lab Findings: Abnormal Labs 04/27/16 04/27/16 04/27/16 13:43 15:32 21:13 Heparin Anti-Xa Level Total Creatine Kinase 546 H 666 H 771 H CK-MB (CK-2) 38.0 H 53.6 H 58.4 H CK-MB (CK-2) Rel Index 6.9 H 8.0 H 7.5 H Troponin T 0.612 H* D 1.200 H* D 04/28/16 04/28/16 04/28/16 04:16 10:10 13:40 Heparin Anti-Xa Level 0.18 L < 0.10 L Total Creatine Kinase CK-MB (CK-2) CK-MB (CK-2) Rel Index Troponin T 1.240 H* 04/28/16 04/29/16 19:55 04:23 Heparin Anti-Xa Level 0.16 L 0.25 L Total Creatine Kinase CK-MB (CK-2) CK-MB (CK-2) Rel Index Troponin T
[2016-04-29] MEDS: ASPIRIN PO SCH (13:48)
[2016-04-29] MEDS: PLAVIX PO SCH (13:49)
[2016-04-29 14:38] LABS: BUN/Creatinine Ratio 14.66; Chloride 102.2 mmol/L (98-107); Magnesium 1.9 mg/dL (1.7-2.3); Potassium 4.3 mmol/L (3.6-5.0)
[2016-04-29 14:40] LABS: INR 0.96 (0.87-1.13)
--- NOTE | 2016-04-29 15:07 | Consultation ---
History of Present Illness - Reason for Consult Consult date: 04/29/16 stroke - History of Present Illness the MRI clearly shows acute mca infarct recommend medical therapy and PT/OT Medications and Allergies Allergies Allergy/AdvReac Type Severity Reaction Status Date / Time No Known Allergies Allergy Verified 04/27/16 05:56 Home Medications Medication Instructions Recorded Confirmed Last Taken Type Aspirin BABY CHEW TAB 81 mg PO DAILY 04/27/16 04/27/16 Unknown History Clonidine 0.2 mg PO BID 04/27/16 04/27/16 Unknown History Clopidogrel 75 mg PO DAILY 04/27/16 04/27/16 Unknown History Coreg 25 mg PO BID 04/27/16 04/27/16 Unknown History Diovan Hct 320-12.5 mg 320 mg PO DAILY 04/27/16 04/27/16 Unknown History Lasix TAB 40 mg PO DAILY 04/27/16 04/27/16 Unknown History Levothyroxine 60 mg PO QAM 04/27/16 04/27/16 Unknown History Minoxidil 5 mg PO DAILY 04/27/16 04/27/16 Unknown History Norvasc 10 mg PO DAILY 04/27/16 04/27/16 Unknown History hydrALAZINE 50 mg PO TID 04/27/16 04/27/16 Unknown History Active Meds: Active Medications Acetaminophen (Tylenol) 650 mg PO Q4H PRN PRN Reason: Pain, Mild (1-3) Amiodarone HCl (Cordarone) 400 mg PO BID [facility] Last Admin: 04/29/16 09:34 Dose: 400 mg Aspirin (Aspirin) 325 mg PO QDAY [facility] Last Admin: 04/29/16 13:48 Dose: 325 mg Atorvastatin Calcium (Lipitor) 40 mg PO QHS LUIS Clopidogrel Bisulfate (Plavix) 75 mg PO QDAY [facility] Last Admin: 04/29/16 13:49 Dose: 75 mg Hydralazine HCl (Apresoline) 5 mg IV Q6HR PRN PRN Reason: Hypertension Heparin Sodium/Sodium Chloride (Heparin/ 0.45% Nacl-25,000 Unit/500 Ml) 500 mls @ 20 mls/hr IV TITRATE LUIS; 1,000 UNITS/HR PRN Reason: Protocol Last Titration: 04/29/16 05:32 Dose: 1,100 units/hr Sodium Chloride (Nacl 0.9% 500 Ml) 500 mls @ 50 mls/hr IV DIRECT LUIS Stop: 04/29/16 21:59 Metoprolol Tartrate (Lopressor) 50 mg PO BID [facility] Last Admin: 04/29/16 09:36 Dose: 50 mg Nitroglycerin (Nitro-Bid 2%) 1 inch TP QIDNTG LUIS PRN Reason: Protocol Last Admin: 04/29/16 13:49 Dose: 1 inch Ondansetron HCl (Zofran) 4 mg IV Q8H PRN PRN Reason: N/V unrelieved by Reglan Sodium Chloride (Sodium Chloride Flush Syringe 10 Ml) 10 ml IV PRN PRN PRN Reason: LINE FLUSH Exam - Constitutional Vitals: Temp Pulse Resp BP Pulse Ox 98.3 F 72 20 128/89 98 04/29/16 11:38 04/29/16 11:38 04/29/16 11:38 04/29/16 13:49 04/29/16 11:38 Results - Labs CBC & Chem 7: 04/29/16 04:23 04/29/16 13:31 Labs: Abnormal lab results 04/28/16 04/29/16 04/29/16 Range/Units 19:55 04:23 13:31 Heparin Anti-Xa Level 0.16 L 0.25 L (0.3-0.7) U.I./ml BUN 22 H (9-20) mg/dL Glucose 115 H (75-100) mg/dL
--- NOTE | 2016-04-29 18:04 | Progress Note ---
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 Acute CVA Dr. Devon Uriostegui input appreciated continue statin, will need intermediate project manager anticoagulation, cont ASA, 2. NSTEMI AND NONSUSTAINED V. TACH Cardiology input appreciated, severe cardiomyopathy noted with probable apical thrombus, will continue heparin; Likely needs intermediate project manager anticoagulation, will likely benefit from cath, will fup with cardiology with regards to this. 3. Dysphagia continue pureed diet, and keep upright, continue to re-enforce, small bites, sips of liquids, no straws, speech therapy input appreciated 4. Suicidal Ideation now resolved, mental health input appreciated, dc [id number] on 04/28/16 Dispo; will likely benefit from acute rehab History Interval history: continues to have Left arm weakness and slurred speech, denies ARROYO, CP , or palpitations Hospitalist Physical - Physical exam Narrative exam: General: Patient appears well in no distress HEENT: MMM, EOMI cardiac: S1-S2 heard lungs: clear to auscultation, abdomen: soft, nontender, nondistended bowel sounds positive extremities: no edema clubbing or cyanosis Skin: no rash or lesion Neuro: Slurred speech, left UE weakness - Constitutional Vitals: Temp Pulse Resp BP Pulse Ox 97.9 F 82 20 121/57 99 04/29/16 16:00 04/29/16 16:00 04/29/16 16:00 04/29/16 17:34 04/29/16 16:00 General appearance: Present: no acute distress Results - Labs CBC & Chem 7: 04/29/16 04:23 04/29/16 13:31 Labs: Laboratory Last Values WBC 10.4 K/mm3 (4.5-11.0) 04/27/16 05:25 RBC 4.85 M/mm3 (3.65-5.03) 04/27/16 05:25 Hgb 13.5 gm/dl (11.8-15.2) 04/29/16 04:23 Hct 41.7 % (35.5-45.6) 04/29/16 04:23 MCV 92 fl (84-94) 04/27/16 05:25 MCH 30 pg (28-32) 04/27/16 05:25 MCHC 32 % (32-34) 04/27/16 05:25 RDW 15.1 % (13.2-15.2) 04/27/16 05:25 Plt Count 286 K/mm3 (140-440) 04/29/16 04:23 Lymph % (Auto) 21.9 % (13.4-35.0) 04/27/16 05:25 [place] % (Auto) 8.0 % (0.0-7.3) H 04/27/16 05:25 Eos % (Auto) 4.8 % (0.0-4.3) H 04/27/16 05:25 Baso % (Auto) 1.0 % (0.0-1.8) 04/27/16 05:25 Lymph # 2.3 K/mm3 (1.2-5.4) 04/27/16 05:25 [place] # 0.8 K/mm3 (0.0-0.8) 04/27/16 05:25 Eos # 0.5 K/mm3 (0.0-0.4) H 04/27/16 05:25 Baso # 0.1 K/mm3 (0.0-0.1) 04/27/16 05:25 Seg Neutrophils % 64.3 % (40.0-70.0) 04/27/16 05:25 Seg Neutrophils # 6.7 K/mm3 (1.8-7.7) 04/27/16 05:25 PT 12.7 Sec. (12.2-14.9) 04/29/16 13:31 INR 0.96 (0.87-1.13) 04/29/16 13:31 APTT 31.3 Sec. (24.2-36.6) 04/27/16 21:13 Thrombin Time 16.3 Sec. (15.1-19.6) 04/27/16 05:25 Heparin Anti-Xa Level 0.25 U.I./ml (0.3-0.7) L 04/29/16 04:23 Sodium 143 mmol/L (137-145) 04/29/16 13:31 Potassium 4.3 mmol/L (3.6-5.0) 04/29/16 13:31 Chloride 102.2 mmol/L (98-107) 04/29/16 13:31 Carbon Dioxide 25 mmol/L (22-30) 04/29/16 13:31 Anion Gap 20 mmol/L 04/29/16 13:31 BUN 22 mg/dL (9-20) H 04/29/16 13:31 Creatinine 1.5 mg/dL (0.8-1.5) 04/29/16 13:31 Estimated GFR 52 ml/min 04/29/16 13:31 BUN/Creatinine Ratio 14.66 % 04/29/16 13:31 Glucose 115 mg/dL (75-100) H 04/29/16 13:31 POC Glucose 108 (70-105) H 04/27/16 05:28 Calcium 9.0 mg/dL (8.4-10.2) 04/29/16 13:31 Magnesium 1.9 mg/dL (1.7-2.3) 04/29/16 13:31 Total Creatine Kinase 771 units/L (55-170) H 04/27/16 21:13 CK-MB (CK-2) 58.4 ng/mL (0.0-4.0) H 04/27/16 21:13 CK-MB (CK-2) Rel Index 7.5 (0-4) H 04/27/16 21:13 Troponin T 1.240 ng/mL (0.00-0.029) H* 04/28/16 13:40 Triglycerides 101 mg/dL (2-149) 04/27/16 05:25 Cholesterol 178 mg/dL (50-199) 04/27/16 05:25 LDL Cholesterol Direct 112 mg/dL (50-130) 04/27/16 05:25 HDL Cholesterol 46 mg/dL (40-59) 04/27/16 05:25 Cholesterol/HDL Ratio 3.86 % 04/27/16 05:25 TSH 2.220 mlU/mL (0.270-4.200) 04/28/16 04:16
[2016-04-30] MEDS ORDERED: NACL 0.9% 500 ML 500 ML IV SCH (05:00)
[2016-04-30 05:24] LABS: INR 0.9 (0.87-1.13)
[2016-04-30 05:26] LABS: Partial Thromboplastin Time 48.6 Sec. (24.2-36.6)
[2016-04-30] MEDS: NITRO-BID 2% TP SCH (05:45)
[2016-04-30] MEDS: HEPARIN/ 0.45% NACL-25,000 UNIT/500 ML 500 ML IV SCH ×2 (06:30→13:55)
[2016-04-30] MEDS ORDERED: PLAVIX ONE (08:15)
[2016-04-30] MEDS ORDERED: ASPIRIN ONE (08:16)
[2016-04-30] MEDS: PLAVIX PO SCH ×2 (08:19→12:17)
[2016-04-30] MEDS: ASPIRIN PO SCH (08:19)
--- NOTE | 2016-04-30 09:26 | Progress Note ---
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 Acute CVA Dr. Devon Uriostegui input appreciated continue statin, will need shelter anticoagulation, cont ASA, plavix 2. NSTEMI AND NONSUSTAINED V. TACH hx of recent stent for CAD 4 months ago Cardiology input appreciated, severe cardiomyopathy noted with probable apical thrombus, will continue heparin; needs shelter anticoagulation, cardiac cath today 3. Dysphagia continue pureed diet, and keep upright, continue to re-enforce, small bites, sips of liquids, no straws, speech therapy input appreciated 4. Suicidal Ideation now resolved, mental health input appreciated, dc [id number] on 04/28/16 Dispo; tentative dc to rehab in 1-2 days History Interval history: continues to have Left arm weakness and slurred speech, denies ARROYO, CP , or palpitations Hospitalist Physical - Physical exam Narrative exam: General: Patient appears well in no distress HEENT: MMM, EOMI cardiac: S1-S2 heard lungs: clear to auscultation, abdomen: soft, nontender, nondistended bowel sounds positive extremities: no edema clubbing or cyanosis Skin: no rash or lesion Neuro: Slurred speech, left UE weakness - Constitutional Vitals: Temp Pulse Resp BP Pulse Ox 98.0 F 71 20 148/103 97 04/30/16 07:17 04/30/16 07:17 04/30/16 07:17 04/30/16 07:17 04/30/16 07:17 General appearance: Present: no acute distress Results - Labs CBC & Chem 7: 04/29/16 04:23 04/29/16 13:31 Labs: Laboratory Last Values WBC 10.4 K/mm3 (4.5-11.0) 04/27/16 05:25 RBC 4.85 M/mm3 (3.65-5.03) 04/27/16 05:25 Hgb 13.5 gm/dl (11.8-15.2) 04/29/16 04:23 Hct 41.7 % (35.5-45.6) 04/29/16 04:23 MCV 92 fl (84-94) 04/27/16 05:25 MCH 30 pg (28-32) 04/27/16 05:25 MCHC 32 % (32-34) 04/27/16 05:25 RDW 15.1 % (13.2-15.2) 04/27/16 05:25 Plt Count 286 K/mm3 (140-440) 04/29/16 04:23 Lymph % (Auto) 21.9 % (13.4-35.0) 04/27/16 05:25 Valley % (Auto) 8.0 % (0.0-7.3) H 04/27/16 05:25 Eos % (Auto) 4.8 % (0.0-4.3) H 04/27/16 05:25 Baso % (Auto) 1.0 % (0.0-1.8) 04/27/16 05:25 Lymph # 2.3 K/mm3 (1.2-5.4) 04/27/16 05:25 Valley # 0.8 K/mm3 (0.0-0.8) 04/27/16 05:25 Eos # 0.5 K/mm3 (0.0-0.4) H 04/27/16 05:25 Baso # 0.1 K/mm3 (0.0-0.1) 04/27/16 05:25 Seg Neutrophils % 64.3 % (40.0-70.0) 04/27/16 05:25 Seg Neutrophils # 6.7 K/mm3 (1.8-7.7) 04/27/16 05:25 PT 12.1 Sec. (12.2-14.9) L 04/30/16 04:39 INR 0.90 (0.87-1.13) 04/30/16 04:39 APTT 48.6 Sec. (24.2-36.6) H 04/30/16 04:39 Thrombin Time 16.3 Sec. (15.1-19.6) 04/27/16 05:25 Heparin Anti-Xa Level 0.23 U.I./ml (0.3-0.7) L 04/30/16 04:39 Sodium 143 mmol/L (137-145) 04/29/16 13:31 Potassium 4.3 mmol/L (3.6-5.0) 04/29/16 13:31 Chloride 102.2 mmol/L (98-107) 04/29/16 13:31 Carbon Dioxide 25 mmol/L (22-30) 04/29/16 13:31 Anion Gap 20 mmol/L 04/29/16 13:31 BUN 22 mg/dL (9-20) H 04/29/16 13:31 Creatinine 1.5 mg/dL (0.8-1.5) 04/29/16 13:31 Estimated GFR 52 ml/min 04/29/16 13:31 BUN/Creatinine Ratio 14.66 % 04/29/16 13:31 Glucose 115 mg/dL (75-100) H 04/29/16 13:31 POC Glucose 109 (70-105) H 04/30/16 07:17 Calcium 9.0 mg/dL (8.4-10.2) 04/29/16 13:31 Magnesium 1.9 mg/dL (1.7-2.3) 04/29/16 13:31 Total Creatine Kinase 771 units/L (55-170) H 04/27/16 21:13 CK-MB (CK-2) 58.4 ng/mL (0.0-4.0) H 04/27/16 21:13 CK-MB (CK-2) Rel Index 7.5 (0-4) H 04/27/16 21:13 Troponin T 1.240 ng/mL (0.00-0.029) H* 04/28/16 13:40 Triglycerides 101 mg/dL (2-149) 04/27/16 05:25 Cholesterol 178 mg/dL (50-199) 04/27/16 05:25 LDL Cholesterol Direct 112 mg/dL (50-130) 04/27/16 05:25 HDL Cholesterol 46 mg/dL (40-59) 04/27/16 05:25 Cholesterol/HDL Ratio 3.86 % 04/27/16 05:25 TSH 2.220 mlU/mL (0.270-4.200) 04/28/16 04:16
[2016-04-30] MEDS ORDERED: HEPARIN/NS 5000 UNIT/500ML(CATH LAB) 1,000 ML IR ONE (09:44)
[2016-04-30] MEDS ORDERED: HEPARIN 10,000 UNITS/10 ML ONE (09:45)
[2016-04-30] MEDS ORDERED: ANGIOMAX IV ONE (09:45)
[2016-04-30] MEDS: SUBLIMAZE ONE ×2 (10:01→10:30)
[2016-04-30] MEDS: XYLOCAINE 2% INFILTRATI ONE ×2 (10:01→10:34)
[2016-04-30] MEDS: VERSED ONE ×2 (10:01→10:30)
--- NOTE | 2016-04-30 10:18 | Progress Note ---
Assessment and Plan - Patient Problems (1) Nonsustained ventricular tachycardia Current Visit: Yes Status: Acute Plan to address problem: After cath he will need EP evaluation/lifevest and further assessment of his VT. (2) NSTEMI (non-ST elevated myocardial infarction) Current Visit: Yes Status: Acute Plan to address problem: Further evaluation of patient's records from [facility] shows extensive cardiac CAD history: 1. Multivessel CAD with prior CABG. 2. 12/2015 he was admitted [facility] with anterior STEMI: Cath showed patent RIOS-LAD, Occluded SVG to circ system and Patent SVG to R PDA. The infarct lesion based on the ECG could not be optimally identified. Attempted PCI of the distal circ occlusion was unsuccessful. He ultimately had successful BM stent to the mid RCA-intended to perfuse the distal PL branches. Cardiac cath today for further evaluation of current NSTEMI. Subjective Date of service: 04/30/16 Interval history: Further evaluation of patient's records from [facility] shows extensive cardiac CAD history: 1. Multivessel CAD with prior CABG. 2. 12/2015 he was admitted [facility] with anterior STEMI: Cath showed patent RIOS-LAD, Occluded SVG to circ system and Patent SVG to R PDA. The infarct lesion based on the ECG could not be optimally identified. Attempted PCI of the distal circ occlusion was unsuccessful. He ultimately had successful BM stent to the mid RCA-intended to perfuse the distal PL branches. Cardiac cath today for further evaluation of current NSTEMI. Objective Vital Signs Temp Pulse Pulse Pulse Resp BP BP 04/30/16 07:17 98.0 F 71 20 148/103 04/29/16 21:17 04/29/16 17:34 121/57 04/29/16 16:00 97.9 F 82 20 134/89 04/29/16 14:00 98.1 F 82 20 148/86 04/29/16 13:49 128/89 04/29/16 11:38 98.3 F 78 72 20 144/104 Pulse Ox 04/30/16 07:17 97 04/29/16 21:17 100 04/29/16 17:34 04/29/16 16:00 99 04/29/16 14:00 98 04/29/16 13:49 04/29/16 11:38 98 - Physical Examination General: No Apparent Distress HEENT: Positive: PERRL Neck: Positive: trachea midline Cardiac: Positive: Reg Rate and Rhythm Lungs: Positive: Decreased Breath Sounds Neuro: Positive: Weakness (L hemiparesis) Abdomen: Positive: Soft Skin: Positive: Clear Extremities: Absent: edema - Labs and Meds Coagulation 04/29/16 04/30/16 Range/Units 13:31 04:39 PT 12.7 12.1 L (12.2-14.9) Sec. INR 0.96 0.90 (0.87-1.13) APTT 48.6 H (24.2-36.6) Sec. Comprehensive Metabolic Panel 04/29/16 Range/Units 13:31 Sodium 143 (137-145) mmol/L Potassium 4.3 (3.6-5.0) mmol/L Chloride 102.2 (98-107) mmol/L Carbon Dioxide 25 (22-30) mmol/L BUN 22 H (9-20) mg/dL Creatinine 1.5 (0.8-1.5) mg/dL Glucose 115 H (75-100) mg/dL Calcium 9.0 (8.4-10.2) mg/dL - Imaging and Cardiology EKG: image reviewed (nonsustained V. tach, 128)
--- NOTE | 2016-04-30 11:17 | Event Note ---
Date: 04/30/16 Cardiac cath done no complications. Findings: 1. Severe 3 vessel disease 2. Patent RIOS-LAD 3. Occluded sequential SVG to circ OM and PLV br 4. Patent SVG to Ac marginal branch of RCA 5. Patent mid RCA stent 6. Severe diffuse disease of distal/terminal branches of the RCA and circumflex , no amenable to revascularization. Recommend: 1. Aggressive RF modification 2. Medical therapy for CAD and heart failure-nitrates, betablockers, statin, afterload therapy and ASA/plavix 3. Initiate Coumadin for LV apex thrombus, continue low intensity heparin until INR is therapeutic 4. Lifevest on discharge, he will ultimately benefit from ICD, on further outpatient evaluation after he is fully rehabbed from CVA.
[2016-04-30 12:10] LABS: Hematocrit 39.7 % (35.5-45.6); Hemoglobin 12.7 gm/dl (11.8-15.2)
[2016-04-30] MEDS: LOPRESSOR PO SCH ×2 (12:17→21:49)
[2016-04-30 12:22] LABS: INR 1.06 (0.87-1.13)
[2016-04-30 12:23] LABS: Partial Thromboplastin Time 30.2 Sec. (24.2-36.6)
[2016-04-30] MEDS ORDERED: HEPARIN 10,000 UNITS/10 ML IV ONE (13:00)
--- NOTE | 2016-04-30 13:13 | Cardiac Catherization Report ---
CARDIAC CATHETERIZATION REASON FOR PROCEDURE: The patient is a 41-year-old man, previous coronary artery bypass, prior mid right coronary artery stent 3 months ago, who presented to the hospital with an acute CVA with left hemiparesis, in addition to a non-ST elevation myocardial infarction. His non-STEMI was manifested by elevation of his cardiac enzymes with a total CPK of 700, CK-MB 7.5%, and troponin 1.24. A cardiac catheterization was recommended. DESCRIPTION OF PROCEDURE: The patient was prepped and draped in a sterile fashion after informed consent. The right femoral artery was entered using the Seldinger technique followed by placement of a 6-Bangladeshi sheath. Selective left and right coronary angiography was performed using #4 right and left Rachna catheters. The right Rachna catheter was used for saphenous vein graft angiography. The left internal mammary artery catheter was used for left internal mammary angiography. The catheters were removed, sheath removed, and hemostasis achieved using an Angio-Seal device. The patient was returned to the postprocedure unit in stable condition. There were no complications. FINDINGS: HEMODYNAMICS: Ascending aortic pressure was 139/94. CORONARY ANGIOGRAPHY: There were mild luminal irregularities of the left main coronary artery. The left anterior descending artery contained diffuse mild atherosclerosis of its proximal segment. There was an up to 70% stenosis of the mid LAD. The left internal mammary artery graft to the LAD was patent with good anastomosis to the mid distal LAD, and good distal runoff. There was diffuse moderate atherosclerosis of the distal segments of the LAD beyond the graft insertion. The circumflex artery was severely diseased. There was moderate diffuse atherosclerosis of the proximal AV groove segment. The mid obtuse marginal artery was completely occluded in its proximal segment. Following this, the circumflex system terminated in a diffusely diseased, terminally occluded distal obtuse marginal. The saphenous vein graft to the circumflex system appeared to be a sequential graft, with anastomosis to the mid obtuse marginal, with continuation of the graft with a terminal anastomosis to the posterior left ventricular branch of the right coronary system. We found, the bypass grafts to be occluded at its origin. However, there was continued patency of the distal limb of the bypass, which connected the obtuse marginal and the posterior left ventricular branch. This distal limb of the bypass graft could be visualized on injection of the morongo circumflex system. The right coronary artery was dominant. This vessel contained diffuse mild to moderate atherosclerosis of its proximal segment. A stent was visible in the mid right coronary artery. The stented segment was widely patent. Following this, there was a medium sized acute marginal branch of the right coronary artery, which perfused the left ventricular apex. This acute marginal branch was chronically occluded in its proximal segment. The saphenous vein graft was patent to the acute marginal branch of the right coronary artery, with perfusion to the distal apical segment of the left ventricle. The AV groove, right coronary then terminated in a small posterior descending branch and a small to medium sized terminal posterolateral. The posterior descending branch was chronically occluded with no significant collateralization. The posterolateral branch was also severely, diffusely diseased in its terminal segment. Left ventricular angiography was not performed. An echocardiogram has previously shown severe end stage left ventricular systolic dysfunction, with evidence of a possible small apical left ventricular thrombus. CONCLUSION: 1. Severe 3-vessel coronary artery disease. 2. Patent left internal mammary artery graft to the LAD. 3. Occluded sequential saphenous vein graft with to the obtuse marginal branch and the small caliber terminal posterior left ventricular branch of the right coronary system. 4. Patent saphenous vein graft to the acute marginal branch of the right coronary artery, which perfused the left ventricular apex. 5. Patent mid right coronary artery stent. 6. Severe diffuse disease of the terminal branches of the circumflex and right coronary systems, and not amenable to revascularization. RECOMMENDATION: 1. Aggressive risk factor modification. 2. Medical therapy for diffuse small vessel coronary artery disease, and severe ischemic cardiomyopathy. JOB# [id number] BRIA/NTS
[2016-04-30] MEDS ORDERED: NACL 0.9% 1000 ML 1,000 ML IV SCH (13:45)
[2016-04-30] MEDS: ZESTRIL PO SCH (13:50)
[2016-04-30] MEDS: BIDIL 20/37.5MG PO SCH ×2 (13:51→21:48)
--- NOTE | 2016-04-30 16:54 | Vascular Lab Report ---
CAROTID DUPLEX STUDY: RIGHT PSVEDV CCA PROX:9319 CCA DIST:7326 ICA PROX:5517 ICA MID:5924 ICA DIST:6432 ECA: 9816 VERT: 32 8 LEFT PSVEDV CCA PROX:9120 CCA DIST:8127 ICA PROX:5619 ICA MID:6230 ICA DIST:7034 ECA: 7913 VERT: 39 13 REASON FOR EXAM: CVA . COMMENTS ON THE RIGHT: Doppler frequency analysis is consistent with 16 to 49 percent diameter reduction of the internal carotid artery. Minimal amount of plaque is seen. The common carotid artery is patent. The external carotid artery is patent. The vertebral artery has antegrade flow. COMMENTS ON THE LEFT: Doppler frequency analysis is consistent with 16 to 49 percent diameter reduction of the internal carotid artery. Minimal amount of plaque is seen. The common carotid artery is patent. The external carotid artery is patent. The vertebral artery has antegrade flow. IMPRESSION: Less than 50% diameter reduction in the internal carotid arteries bilaterally. Consider repeat carotid artery duplex in 12 months.
--- NOTE | 2016-04-30 16:57 | Consultation ---
History of Present Illness - Reason for Consult Consult date: 04/30/16 Evaluate for Acute IRU - History of Present Illness 41 y.o. male admitted secondary to acute onset of left arm weakness, dysarthria , and hypertension; reported to be in non-sustained VTach on admission and Cardiology consulted. MRI Brain notable for acute infarcts in the right lateral MCA territory and medial right cerebellar hemisphere. ECHO was completed during work-up and revealed EF 10-15% and LV thrombus. Pt will require coumadin and Lifevest, per Cardiology. On today, pt continues with LUE weakness and dysarthria. Consult requested for post-acute placement recommendations. Past History Past Medical History: CAD, hypertension, hypothyroidism, other (schizophrenia) Past Surgical History: CABG, Other (cardiac stent) Social history: lives with family, smoking Family history: CAD Medications and Allergies Allergies Allergy/AdvReac Type Severity Reaction Status Date / Time No Known Allergies Allergy Verified 04/27/16 05:56 Home Medications Medication Instructions Recorded Confirmed Last Taken Type Aspirin BABY CHEW TAB 81 mg PO DAILY 04/27/16 04/27/16 Unknown History Clonidine 0.2 mg PO BID 04/27/16 04/27/16 Unknown History Clopidogrel 75 mg PO DAILY 04/27/16 04/27/16 Unknown History Coreg 25 mg PO BID 04/27/16 04/27/16 Unknown History Diovan Hct 320-12.5 mg 320 mg PO DAILY 04/27/16 04/27/16 Unknown History Lasix TAB 40 mg PO DAILY 04/27/16 04/27/16 Unknown History Levothyroxine 60 mg PO QAM 04/27/16 04/27/16 Unknown History Minoxidil 5 mg PO DAILY 04/27/16 04/27/16 Unknown History Norvasc 10 mg PO DAILY 04/27/16 04/27/16 Unknown History hydrALAZINE 50 mg PO TID 04/27/16 04/27/16 Unknown History Active Meds: Active Medications Acetaminophen (Tylenol) 650 mg PO Q4H PRN PRN Reason: Pain, Mild (1-3) Amiodarone HCl (Cordarone) 200 mg PO BID [facility] Aspirin (Halfprin Ec) 81 mg PO QDAY [facility] Atorvastatin Calcium (Lipitor) 40 mg PO QHS [facility] Last Admin: 04/29/16 22:15 Dose: 40 mg Clopidogrel Bisulfate (Plavix) 75 mg PO QDAY [facility] Last Admin: 04/30/16 12:17 Dose: Not Given Hydralazine HCl (Apresoline) 5 mg IV Q6HR PRN PRN Reason: Hypertension Heparin Sodium/Sodium Chloride (Heparin/ 0.45% Nacl-25,000 Unit/500 Ml) 500 mls @ 20 mls/hr IV TITRATE LUIS; 1,000 UNITS/HR PRN Reason: Protocol Last Admin: 04/30/16 13:55 Dose: 20 mls/hr Isosorbide Dinitrate/Hydralazine (Bidil 20/37.5mg) 1 each PO Q8HR [facility] Last Admin: 04/30/16 13:51 Dose: 1 each Lisinopril (Zestril) 5 mg PO QDAY [facility] Last Admin: 04/30/16 13:50 Dose: 5 mg Metoprolol Tartrate (Lopressor) 50 mg PO BID [facility] Last Admin: 04/30/16 12:17 Dose: 50 mg Ondansetron HCl (Zofran) 4 mg IV Q8H PRN PRN Reason: N/V unrelieved by Reglan Sodium Chloride (Sodium Chloride Flush Syringe 10 Ml) 10 ml IV PRN PRN PRN Reason: LINE FLUSH Tramadol HCl (Ultram) 50 mg PO Q4H PRN PRN Reason: Pain, Mild (1-3) Warfarin Sodium (Coumadin Pharmacy To Dose) 1 each PO PKCONSULT [facility] PRN Reason: Protocol Warfarin Sodium (Coumadin) 10 mg PO DAILY@1700 [facility] PRN Reason: Protocol Review of Systems All systems: negative Ears, nose, mouth and throat: no headache Cardiovascular: no chest pain Respiratory: cough, no shortness of breath Gastrointestinal: no nausea, no vomiting Neurological: weakness (left arm>leg) Exam - Constitutional Vitals: Vital Signs - 12hr 04/30/16 04/30/16 04/30/16 07:17 11:08 12:17 Temperature 98.0 F 98.3 F Pulse Rate 66 Pulse Rate [ 71 80 Right Radial] Respiratory 20 20 Rate Blood Pressure 147/109 Blood Pressure 148/103 134/97 [Right Arm] O2 Sat by Pulse 97 95 Oximetry 04/30/16 04/30/16 04/30/16 13:50 13:51 15:16 Temperature 98.3 F Pulse Rate 74 74 Pulse Rate [ 74 Right Radial] Respiratory 20 Rate Blood Pressure 147/111 147/111 Blood Pressure 139/97 [Right Arm] O2 Sat by Pulse 97 Oximetry General appearance: no acute distress - EENT Eyes: EOM intact ENT: hearing intact - Neck Neck: supple, normal ROM - Respiratory Respiratory effort: normal Respiratory: bilateral: CTA - Cardiovascular Heart Sounds: Present: S1 & S2 - Extremities Extremities: No edema - Gastrointestinal General gastrointestinal: Present: non-tender, normal bowel sounds - Musculoskeletal Musculoskeletal: left sided weakness (3/5 LLE; 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, otherwise flaccid LUE) - Neurologic Neurologic: other (+facial droop, dysarthria) - Psychiatric Psychiatric: no memory intact (oriented to self), cooperative - Allied health notes Allied health notes reviewed: PT (ambulating 150 feet x2 with SBQC), ST (pureed diet, thin liquids), OT (s/u to modA for ADLs) - Labs CBC & Chem 7: 04/30/16 11:44 04/29/16 13:31 Labs: Laboratory Results - last 72 hr 04/27/16 04/27/16 04/27/16 21:13 21:13 21:13 Hgb 14.4 Hct 43.8 Plt Count 324 PT 13.0 INR 0.99 APTT 31.3 Heparin Anti-Xa Level Sodium Potassium Chloride Carbon Dioxide Anion Gap BUN Creatinine Estimated GFR BUN/Creatinine Ratio Glucose POC Glucose Calcium Magnesium Total Creatine Kinase 771 H CK-MB (CK-2) 58.4 H CK-MB (CK-2) Rel Index 7.5 H Troponin T TSH 04/28/16 04/28/16 04/28/16 04:16 04:16 10:10 Hgb Hct Plt Count PT INR APTT Heparin Anti-Xa Level 0.18 L < 0.10 L Sodium Potassium Chloride Carbon Dioxide Anion Gap BUN Creatinine Estimated GFR BUN/Creatinine Ratio Glucose POC Glucose Calcium Magnesium Total Creatine Kinase CK-MB (CK-2) CK-MB (CK-2) Rel Index Troponin T TSH 2.220 04/28/16 04/28/16 04/29/16 13:40 19:55 04:23 Hgb 13.5 Hct 41.7 Plt Count 286 PT INR APTT Heparin Anti-Xa Level 0.16 L Sodium Potassium Chloride Carbon Dioxide Anion Gap BUN Creatinine Estimated GFR BUN/Creatinine Ratio Glucose POC Glucose Calcium Magnesium Total Creatine Kinase CK-MB (CK-2) CK-MB (CK-2) Rel Index Troponin T 1.240 H* TSH 04/29/16 04/29/16 04/29/16 04:23 13:31 13:31 Hgb Hct Plt Count PT 12.7 INR 0.96 APTT Heparin Anti-Xa Level 0.25 L Sodium 143 Potassium 4.3 Chloride 102.2 Carbon Dioxide 25 Anion Gap 20 BUN 22 H Creatinine 1.5 Estimated GFR 52 BUN/Creatinine Ratio 14.66 Glucose 115 H POC Glucose Calcium 9.0 Magnesium 1.9 Total Creatine Kinase CK-MB (CK-2) CK-MB (CK-2) Rel Index Troponin T TSH 04/30/16 04/30/16 04/30/16 04:39 07:17 11:44 Hgb 12.7 Hct 39.7 Plt Count 271 PT 12.1 L INR 0.90 APTT 48.6 H Heparin Anti-Xa Level 0.23 L Sodium Potassium Chloride Carbon Dioxide Anion Gap BUN Creatinine Estimated GFR BUN/Creatinine Ratio Glucose POC Glucose 109 H Calcium Magnesium Total Creatine Kinase CK-MB (CK-2) CK-MB (CK-2) Rel Index Troponin T TSH 04/30/16 11:44 Hgb Hct Plt Count PT 13.7 INR 1.06 APTT 30.2 Heparin Anti-Xa Level Sodium Potassium Chloride Carbon Dioxide Anion Gap BUN Creatinine Estimated GFR BUN/Creatinine Ratio Glucose POC Glucose Calcium Magnesium Total Creatine Kinase CK-MB (CK-2) CK-MB (CK-2) Rel Index Troponin T TSH Assessment and Plan Patient was assessed and evaluated for Acute Inpatient Rehab Unit. 41 y.o. right handed male with acute right CVA with subsequent left hemiparesis , dysarthria and dysphagia; also with LV thrombus requiring anticoagulation with coumadin. Pt has history of schizophrenia and is with some cognitive deficits; will discuss rehab options with family. Pt is noted to have functional deficits, however, has shown some progression with PT since admission ; now ambulating with small based quad cane 150 feet x2 with CGA. Unclear if patient is able to have 24 hour supervision at discharge. Will discuss case with CM; F/U medicaid application. Will continue to follow for placement recommendations. Thank you for consultation. - Patient Problems (1) Right-sided cerebrovascular accident (CVA) Current Visit: Yes Status: Acute (2) Hemiparesis affecting left side as late effect of cerebrovascular accident Current Visit: Yes Status: Acute (3) Dysarthria as late effect of cerebrovascular accident (CVA) Current Visit: Yes Status: Acute (4) Dysphagia as late effect of cerebrovascular accident (CVA) Current Visit: Yes Status: Acute (5) Abnormality of gait following cerebrovascular accident (CVA) Current Visit: Yes Status: Acute
[2016-04-30] MEDS ORDERED: COUMADIN PO SCH ×2 (17:00)
[2016-04-30] MEDS: CORDARONE PO SCH ×2 (17:34→21:48)
[2016-05-01] MEDS: BIDIL 20/37.5MG PO SCH ×3 (05:07→21:26)
[2016-05-01 05:44] LABS: Hematocrit 37.9 % (35.5-45.6); Hemoglobin 12.3 gm/dl (11.8-15.2)
[2016-05-01 05:54] LABS: INR 0.96 (0.87-1.13)
--- NOTE | 2016-05-01 10:09 | Progress Note ---
Addendum entered and electronically signed by AYAAN GARG MD 11:58: Agree with Mrs Velez assessment and plan Original Note: Assessment and Plan Acute CVA NSTEMI Cardiac cath findings: 1. Severe 3 vessel disease 2. Patent RIOS-LAD 3. Occluded sequential SVG to circ OM and PLV br 4. Patent SVG to Ac marginal branch of RCA 5. Patent mid RCA stent 6. Severe diffuse disease of distal/terminal branches of the RCA and circumflex, no amenable to revascularization. NSVT -paroxysmal normal TSH Hx of CAD s/p remote CABG Ischemic Cardiomyopathy Echocardiogram shows a severe cardiomyopathy EF 15% Small apical left ventricular thrombus on echo this admission Suicidal ideation -inpatient at [facility] Recommend: 1. Aggressive RF modification 2. Medical therapy for CAD and heart failure-nitrates, betablockers, statin, afterload therapy and ASA/plavix 3. Continue Coumadin for LV apex thrombus, continue low intensity heparin until INR is therapeutic 4. Lifevest on discharge, he will ultimately benefit from ICD, on further outpatient evaluation after he is fully rehabbed from CVA. Subjective Date of service: 05/01/16 Interval history: Patient denies chest pain, shortness of breath and palpitations. Objective Vital Signs Temp Pulse Pulse Pulse Pulse Resp BP 05/01/16 07:23 98.1 F 69 18 05/01/16 04:39 98.2 F 68 19 05/01/16 00:00 98.3 F 64 18 04/30/16 20:00 98.6 F 72 20 04/30/16 16:00 97.6 F 76 18 04/30/16 15:30 97.0 F L 74 18 04/30/16 15:16 98.3 F 74 20 04/30/16 15:00 97.6 F 71 18 04/30/16 14:30 97.6 F 73 16 04/30/16 14:00 97.5 F L 67 16 04/30/16 13:51 74 147/111 04/30/16 13:50 74 147/111 04/30/16 13:30 97.6 F 79 18 04/30/16 12:30 96.8 F L 68 18 04/30/16 12:17 66 147/109 04/30/16 12:00 98.2 F 64 18 04/30/16 11:45 98.0 F 20 04/30/16 11:08 98.3 F 80 20 BP Pulse Ox 05/01/16 07:23 108/67 100 05/01/16 04:39 121/84 95 05/01/16 00:00 109/57 100 04/30/16 20:00 130/82 100 04/30/16 16:00 137/97 99 04/30/16 15:30 149/98 99 04/30/16 15:16 139/97 97 04/30/16 15:00 136/94 99 04/30/16 14:30 149/95 99 04/30/16 14:00 151/113 98 04/30/16 13:51 04/30/16 13:50 04/30/16 13:30 153/116 98 04/30/16 12:30 159/103 98 04/30/16 12:17 04/30/16 12:00 151/105 99 04/30/16 11:45 134/88 98 04/30/16 11:08 134/97 95 - Physical Examination General: No Apparent Distress HEENT: Positive: PERRL Neck: Positive: trachea midline Cardiac: Positive: Reg Rate and Rhythm Lungs: Positive: Decreased Breath Sounds Neuro: Positive: Weakness (LUE hemiparesis) Extremities: Absent: edema - Labs and Meds Coagulation 04/30/16 05/01/16 Range/Units 11:44 04:19 PT 13.7 12.7 (12.2-14.9) Sec. INR 1.06 0.96 (0.87-1.13) APTT 30.2 (24.2-36.6) Sec. CBC 04/30/16 05/01/16 Range/Units 11:44 04:19 Hgb 12.7 12.3 (11.8-15.2) gm/dl Hct 39.7 37.9 (35.5-45.6) % Plt Count 271 264 (140-440) K/mm3 - Imaging and Cardiology EKG: image reviewed (nonsustained V. tach, 128)
[2016-05-01] MEDS: ZESTRIL PO SCH (10:10)
[2016-05-01] MEDS: HALFPRIN EC PO SCH (10:12)
[2016-05-01] MEDS: PLAVIX PO SCH (10:13)
[2016-05-01] MEDS: CORDARONE PO SCH ×2 (10:14→21:25)
[2016-05-01] MEDS: LOPRESSOR PO SCH ×2 (11:40→21:25)
[2016-05-01] MEDS: HEPARIN/ 0.45% NACL-25,000 UNIT/500 ML 500 ML IV SCH (15:27)
--- NOTE | 2016-05-01 16:34 | Progress Note ---
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 Acute CVA Dr. Devon Uriostegui input appreciated continue statin, will need senior living anticoagulation, cont ASA, plavix 2. NSTEMI AND NONSUSTAINED V. TACH hx of recent stent for CAD 4 months ago Cardiology input appreciated, severe cardiomyopathy noted with probable apical thrombus, will continue heparin drip and warfarin sp cardiac cath, 3 vessel disease not ammenable to stenting or angioplasty, continue medical therapy 3. Dysphagia continue pureed diet, and keep upright, continue to re-enforce, small bites, sips of liquids, no straws, speech therapy input appreciated 4. Suicidal Ideation now resolved, mental health input appreciated, dc 1013 on 04/28/16 Dispo; tentative dc to rehab in 1-2 days History Interval history: continues to have Left arm weakness and slurred speech, denies ARROYO, CP , or palpitations Hospitalist Physical - Physical exam Narrative exam: General: Patient appears well in no distress HEENT: MMM, EOMI cardiac: S1-S2 heard lungs: clear to auscultation, abdomen: soft, nontender, nondistended bowel sounds positive extremities: no edema clubbing or cyanosis Skin: no rash or lesion Neuro: Slurred speech, left UE weakness - Constitutional Vitals: Temp Pulse Resp BP Pulse Ox 97.4 F L 71 20 123/81 100 05/01/16 15:47 05/01/16 15:47 05/01/16 15:47 05/01/16 15:47 05/01/16 15:47 General appearance: Present: no acute distress Results - Labs CBC & Chem 7: 05/03/16 04:22 05/02/16 04:44 Labs: Laboratory Last Values WBC 10.4 K/mm3 (4.5-11.0) 04/27/16 05:25 RBC 4.85 M/mm3 (3.65-5.03) 04/27/16 05:25 Hgb 12.3 gm/dl (11.8-15.2) 05/01/16 04:19 Hct 37.9 % (35.5-45.6) 05/01/16 04:19 MCV 92 fl (84-94) 04/27/16 05:25 MCH 30 pg (28-32) 04/27/16 05:25 MCHC 32 % (32-34) 04/27/16 05:25 RDW 15.1 % (13.2-15.2) 04/27/16 05:25 Plt Count 264 K/mm3 (140-440) 05/01/16 04:19 Lymph % (Auto) 21.9 % (13.4-35.0) 04/27/16 05:25 Dickinson % (Auto) 8.0 % (0.0-7.3) H 04/27/16 05:25 Eos % (Auto) 4.8 % (0.0-4.3) H 04/27/16 05:25 Baso % (Auto) 1.0 % (0.0-1.8) 04/27/16 05:25 Lymph # 2.3 K/mm3 (1.2-5.4) 04/27/16 05:25 Dickinson # 0.8 K/mm3 (0.0-0.8) 04/27/16 05:25 Eos # 0.5 K/mm3 (0.0-0.4) H 04/27/16 05:25 Baso # 0.1 K/mm3 (0.0-0.1) 04/27/16 05:25 Seg Neutrophils % 64.3 % (40.0-70.0) 04/27/16 05:25 Seg Neutrophils # 6.7 K/mm3 (1.8-7.7) 04/27/16 05:25 PT 12.7 Sec. (12.2-14.9) 05/01/16 04:19 INR 0.96 (0.87-1.13) 05/01/16 04:19 APTT 30.2 Sec. (24.2-36.6) 04/30/16 11:44 Thrombin Time 16.3 Sec. (15.1-19.6) 04/27/16 05:25 Heparin Anti-Xa Level 0.25 U.I./ml (0.3-0.7) L 05/01/16 04:19 Sodium 143 mmol/L (137-145) 04/29/16 13:31 Potassium 4.3 mmol/L (3.6-5.0) 04/29/16 13:31 Chloride 102.2 mmol/L (98-107) 04/29/16 13:31 Carbon Dioxide 25 mmol/L (22-30) 04/29/16 13:31 Anion Gap 20 mmol/L 04/29/16 13:31 BUN 22 mg/dL (9-20) H 04/29/16 13:31 Creatinine 1.5 mg/dL (0.8-1.5) 04/29/16 13:31 Estimated GFR 52 ml/min 04/29/16 13:31 BUN/Creatinine Ratio 14.66 % 04/29/16 13:31 Glucose 115 mg/dL (75-100) H 04/29/16 13:31 POC Glucose 173 (70-105) H 04/30/16 15:14 Calcium 9.0 mg/dL (8.4-10.2) 04/29/16 13:31 Magnesium 1.9 mg/dL (1.7-2.3) 04/29/16 13:31 Total Creatine Kinase 771 units/L (55-170) H 04/27/16 21:13 CK-MB (CK-2) 58.4 ng/mL (0.0-4.0) H 04/27/16 21:13 CK-MB (CK-2) Rel Index 7.5 (0-4) H 04/27/16 21:13 Troponin T 1.240 ng/mL (0.00-0.029) H* 04/28/16 13:40 Triglycerides 101 mg/dL (2-149) 04/27/16 05:25 Cholesterol 178 mg/dL (50-199) 04/27/16 05:25 LDL Cholesterol Direct 112 mg/dL (50-130) 04/27/16 05:25 HDL Cholesterol 46 mg/dL (40-59) 04/27/16 05:25 Cholesterol/HDL Ratio 3.86 % 04/27/16 05:25 TSH 2.220 mlU/mL (0.270-4.200) 04/28/16 04:16
[2016-05-01] MEDS: COUMADIN PO SCH (17:57)
[2016-05-02] MEDS: BIDIL 20/37.5MG PO SCH ×3 (05:38→21:46)
[2016-05-02 05:40] LABS: Hematocrit 38.7 % (35.5-45.6); Hemoglobin 12.3 gm/dl (11.8-15.2)
[2016-05-02 05:46] LABS: INR 1.06 (0.87-1.13)
[2016-05-02 06:03] LABS: BUN/Creatinine Ratio 11.87; Calcium 8.7 mg/dL (8.4-10.2); Chloride 102.1 mmol/L (98-107); Potassium 4.2 mmol/L (3.6-5.0)
[2016-05-02] MEDS: ZESTRIL PO SCH (09:05)
[2016-05-02] MEDS: PLAVIX PO SCH (09:05)
[2016-05-02] MEDS: CORDARONE PO SCH ×2 (09:06→21:47)
[2016-05-02] MEDS: HALFPRIN EC PO SCH (09:06)
[2016-05-02] MEDS: LOPRESSOR PO SCH ×2 (09:07→21:47)
--- NOTE | 2016-05-02 10:09 | Progress Note ---
Assessment and Plan 1. Cerebrovascular disease status post acute CVA. 2. History of coronary artery disease status post CABG 3. CVA 3 vessel coronary artery disease by cardiac cath 4. Ischemic cardiomyopathy LV ejection fraction 15% 5. Normal left ventricular apical thrombus 6. Suicidal ideation Plan. Patient is currently stable to be treated conservatively not a candidate for revascularization given coronary anatomy. Subjective Date of service: 05/02/16 Interval history: No cardiac symptoms. Objective Vital Signs Temp Pulse Pulse Pulse Resp BP BP 05/02/16 09:07 56 L 119/71 05/02/16 09:05 56 L 119/71 05/02/16 07:14 98.4 F 56 L 20 119/71 05/02/16 05:05 98.3 F 60 20 110/68 05/02/16 03:00 63 05/02/16 00:22 97.8 F 56 L 18 121/68 05/01/16 21:25 78 114/72 05/01/16 20:11 98.4 F 58 L 20 114/72 05/01/16 15:47 97.4 F L 71 20 123/81 05/01/16 15:30 69 126/92 05/01/16 11:40 69 108/67 05/01/16 11:24 98.5 F 67 18 125/85 05/01/16 11:00 71 05/01/16 10:10 69 108/67 Pulse Ox 05/02/16 09:07 05/02/16 09:05 05/02/16 07:14 97 05/02/16 05:05 96 05/02/16 03:00 05/02/16 00:22 98 05/01/16 21:25 05/01/16 20:11 99 05/01/16 15:47 100 05/01/16 15:30 05/01/16 11:40 05/01/16 11:24 100 05/01/16 11:00 05/01/16 10:10 - Physical Examination General: Appears Well, No Apparent Distress HEENT: Positive: PERRL, Normocephaly Neck: Positive: trachea midline. Negative: JVD/HJR Cardiac: Positive: Regular Rate, S1/S2, PMI, Laterally Displaced Lungs: Positive: clear to auscultation, No Wheeze, Rales, Rhonchi Neuro: Positive: Weakness (LUE hemiparesis) Abdomen: Positive: Unremarkable, Soft, Active Bowel Sounds Skin: Positive: Clear Extremities: Absent: edema - Labs and Meds Coagulation 05/02/16 Range/Units 04:44 PT 13.7 (12.2-14.9) Sec. INR 1.06 (0.87-1.13) CBC 05/02/16 Range/Units 04:44 Hgb 12.3 (11.8-15.2) gm/dl Hct 38.7 (35.5-45.6) % Plt Count 269 (140-440) K/mm3 Comprehensive Metabolic Panel 05/02/16 Range/Units 04:44 Sodium 140 (137-145) mmol/L Potassium 4.2 (3.6-5.0) mmol/L Chloride 102.1 (98-107) mmol/L Carbon Dioxide 24 (22-30) mmol/L BUN 19 (9-20) mg/dL Creatinine 1.6 H (0.8-1.5) mg/dL Glucose 154 H (75-100) mg/dL Calcium 8.7 (8.4-10.2) mg/dL - Imaging and Cardiology EKG: image reviewed (nonsustained V. tach, 128)
--- NOTE | 2016-05-02 11:48 | Progress Note ---
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 Acute CVA Dr. Devon Uriostegui input appreciated continue statin, will need usp anticoagulation, cont ASA, plavix 2. NSTEMI AND NONSUSTAINED V. TACH hx of recent stent for CAD 4 months ago Cardiology input appreciated, severe cardiomyopathy noted with probable apical thrombus, will continue heparin drip and warfarin sp cardiac cath, 3 vessel disease not ammenable to stenting or angioplasty, continue medical therapy 3. Dysphagia continue pureed diet, and keep upright, continue to re-enforce, small bites, sips of liquids, no straws, speech therapy input appreciated 4. Suicidal Ideation now resolved, mental health input appreciated, dc 1013 on 04/28/16 Dispo; tentative dc to rehab in 1-2 days History Interval history: continues to have Left arm weakness and slurred speech, denies ARROYO, CP , or palpitations Hospitalist Physical - Physical exam Narrative exam: General: Patient appears well in no distress HEENT: MMM, EOMI cardiac: S1-S2 heard lungs: clear to auscultation, abdomen: soft, nontender, nondistended bowel sounds positive extremities: no edema clubbing or cyanosis Skin: no rash or lesion Neuro: Slurred speech, left UE weakness - Constitutional Vitals: Temp Pulse Resp BP Pulse Ox 98.4 F 56 L 20 119/71 97 05/02/16 07:14 05/02/16 09:07 05/02/16 07:14 05/02/16 09:07 05/02/16 07:14 General appearance: Present: no acute distress Results - Labs CBC & Chem 7: 05/03/16 04:22 05/02/16 04:44 Labs: Laboratory Last Values WBC 10.4 K/mm3 (4.5-11.0) 04/27/16 05:25 RBC 4.85 M/mm3 (3.65-5.03) 04/27/16 05:25 Hgb 12.3 gm/dl (11.8-15.2) 05/02/16 04:44 Hct 38.7 % (35.5-45.6) 05/02/16 04:44 MCV 92 fl (84-94) 04/27/16 05:25 MCH 30 pg (28-32) 04/27/16 05:25 MCHC 32 % (32-34) 04/27/16 05:25 RDW 15.1 % (13.2-15.2) 04/27/16 05:25 Plt Count 269 K/mm3 (140-440) 05/02/16 04:44 Lymph % (Auto) 21.9 % (13.4-35.0) 04/27/16 05:25 Shelby % (Auto) 8.0 % (0.0-7.3) H 04/27/16 05:25 Eos % (Auto) 4.8 % (0.0-4.3) H 04/27/16 05:25 Baso % (Auto) 1.0 % (0.0-1.8) 04/27/16 05:25 Lymph # 2.3 K/mm3 (1.2-5.4) 04/27/16 05:25 Shelby # 0.8 K/mm3 (0.0-0.8) 04/27/16 05:25 Eos # 0.5 K/mm3 (0.0-0.4) H 04/27/16 05:25 Baso # 0.1 K/mm3 (0.0-0.1) 04/27/16 05:25 Seg Neutrophils % 64.3 % (40.0-70.0) 04/27/16 05:25 Seg Neutrophils # 6.7 K/mm3 (1.8-7.7) 04/27/16 05:25 PT 13.7 Sec. (12.2-14.9) 05/02/16 04:44 INR 1.06 (0.87-1.13) 05/02/16 04:44 APTT 30.2 Sec. (24.2-36.6) 04/30/16 11:44 Thrombin Time 16.3 Sec. (15.1-19.6) 04/27/16 05:25 Heparin Anti-Xa Level 0.33 U.I./ml (0.3-0.7) 05/01/16 20:05 Sodium 140 mmol/L (137-145) 05/02/16 04:44 Potassium 4.2 mmol/L (3.6-5.0) 05/02/16 04:44 Chloride 102.1 mmol/L (98-107) 05/02/16 04:44 Carbon Dioxide 24 mmol/L (22-30) 05/02/16 04:44 Anion Gap 18 mmol/L 05/02/16 04:44 BUN 19 mg/dL (9-20) 05/02/16 04:44 Creatinine 1.6 mg/dL (0.8-1.5) H 05/02/16 04:44 Estimated GFR 48 ml/min 05/02/16 04:44 BUN/Creatinine Ratio 11.87 % 05/02/16 04:44 Glucose 154 mg/dL (75-100) H 05/02/16 04:44 POC Glucose 98 (70-105) 05/01/16 21:19 Calcium 8.7 mg/dL (8.4-10.2) 05/02/16 04:44 Magnesium 1.9 mg/dL (1.7-2.3) 04/29/16 13:31 Total Creatine Kinase 771 units/L (55-170) H 04/27/16 21:13 CK-MB (CK-2) 58.4 ng/mL (0.0-4.0) H 04/27/16 21:13 CK-MB (CK-2) Rel Index 7.5 (0-4) H 04/27/16 21:13 Troponin T 1.240 ng/mL (0.00-0.029) H* 04/28/16 13:40 Triglycerides 101 mg/dL (2-149) 04/27/16 05:25 Cholesterol 178 mg/dL (50-199) 04/27/16 05:25 LDL Cholesterol Direct 112 mg/dL (50-130) 04/27/16 05:25 HDL Cholesterol 46 mg/dL (40-59) 04/27/16 05:25 Cholesterol/HDL Ratio 3.86 % 04/27/16 05:25 TSH 2.220 mlU/mL (0.270-4.200) 04/28/16 04:16
[2016-05-02] MEDS: HEPARIN/ 0.45% NACL-25,000 UNIT/500 ML 500 ML IV SCH (17:58)
[2016-05-02] MEDS: COUMADIN PO SCH (17:59)
[2016-05-02] MEDS: TYLENOL PO PRN (21:50)
[2016-05-03 04:56] LABS: Hematocrit 37.9 % (35.5-45.6); Hemoglobin 12.3 gm/dl (11.8-15.2)
[2016-05-03 05:15] LABS: INR 1.16 (0.87-1.13)
[2016-05-03] MEDS: BIDIL 20/37.5MG PO SCH ×3 (06:11→21:57)
[2016-05-03] MEDS: CORDARONE PO SCH ×2 (10:02→21:58)
[2016-05-03] MEDS: LOPRESSOR PO SCH ×2 (10:03→21:58)
[2016-05-03] MEDS: ZESTRIL PO SCH (10:03)
--- NOTE | 2016-05-03 10:13 | Progress Note ---
Assessment and Plan 1. Cerebrovascular disease status post acute CVA. 2. History of coronary artery disease status post CABG 3. CVA 3 vessel coronary artery disease by cardiac cath 4. Ischemic cardiomyopathy LV ejection fraction 15% 5. Normal left ventricular apical thrombus 6. Suicidal ideation Plan. Patient is currently stable to be treated conservatively not a candidate for revascularization given coronary anatomy. Subjective Date of service: 05/03/16 Interval history: No cardiac symptoms. Objective Vital Signs Temp Pulse Pulse Resp BP BP Pulse Ox 05/03/16 06:00 63 05/03/16 04:54 98.2 F 72 20 128/64 98 05/02/16 23:58 97.6 F 59 L 18 126/89 96 05/02/16 20:00 98.2 F 83 20 149/103 97 05/02/16 16:30 97.5 F L 77 20 118/78 97 05/02/16 14:21 63 120/76 05/02/16 11:54 97.2 F L 63 20 120/76 97 05/02/16 11:00 57 L - Physical Examination General: Appears Well, No Apparent Distress HEENT: Positive: PERRL, Normocephaly Neck: Positive: trachea midline. Negative: JVD/HJR Cardiac: Positive: Regular Rate, S1/S2, S3, Dilated, Laterally Displaced Lungs: Positive: clear to auscultation, No Wheeze, Rales, Rhonchi Neuro: Positive: Weakness (LUE hemiparesis) Abdomen: Positive: Unremarkable, Soft, Active Bowel Sounds Skin: Positive: Clear Extremities: Absent: edema - Labs and Meds Coagulation 05/03/16 Range/Units 04:22 PT 14.7 (12.2-14.9) Sec. INR 1.16 H (0.87-1.13) CBC 05/03/16 Range/Units 04:22 Hgb 12.3 (11.8-15.2) gm/dl Hct 37.9 (35.5-45.6) % Plt Count 256 (140-440) K/mm3 - Imaging and Cardiology EKG: image reviewed (nonsustained V. tach, 128)
--- NOTE | 2016-05-03 12:58 | Progress Note ---
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 Acute CVA Dr. Devon Uriostegui input appreciated continue statin, will need intermediate manager anticoagulation, cont ASA, plavix embolic stroke, needs aggressive anticoagulation, improving with PT 2. NSTEMI AND NONSUSTAINED V. TACH hx of recent stent for CAD 4 months ago Cardiology input appreciated, severe cardiomyopathy noted with probable apical thrombus, full dose lovenox and warfarin sp cardiac cath, 3 vessel disease not ammenable to stenting or angioplasty, continue medical therapy 3. Dysphagia continue pureed diet, and keep upright, continue to re-enforce, small bites, sips of liquids, no straws, speech therapy input appreciated 4. Suicidal Ideation now resolved, mental health input appreciated, dc 1013 on 04/28/16 Dispo; tentative dc to rehab in 1-2 days History Interval history: continues to have Left arm weakness and slurred speech, denies ARROYO, CP , or palpitations Hospitalist Physical - Physical exam Narrative exam: General: Patient appears well in no distress HEENT: MMM, EOMI cardiac: S1-S2 heard lungs: clear to auscultation, abdomen: soft, nontender, nondistended bowel sounds positive extremities: no edema clubbing or cyanosis Skin: no rash or lesion Neuro: Slurred speech, left UE weakness - Constitutional Vitals: Temp Pulse Resp BP Pulse Ox 97.3 F L 69 20 146/101 97 05/03/16 11:00 05/03/16 11:00 05/03/16 11:00 05/03/16 11:00 05/03/16 11:00 General appearance: Present: no acute distress Results - Labs CBC & Chem 7: 05/03/16 04:22 05/02/16 04:44 Labs: Laboratory Last Values WBC 10.4 K/mm3 (4.5-11.0) 04/27/16 05:25 RBC 4.85 M/mm3 (3.65-5.03) 04/27/16 05:25 Hgb 12.3 gm/dl (11.8-15.2) 05/03/16 04:22 Hct 37.9 % (35.5-45.6) 05/03/16 04:22 MCV 92 fl (84-94) 04/27/16 05:25 MCH 30 pg (28-32) 04/27/16 05:25 MCHC 32 % (32-34) 04/27/16 05:25 RDW 15.1 % (13.2-15.2) 04/27/16 05:25 Plt Count 256 K/mm3 (140-440) 05/03/16 04:22 Lymph % (Auto) 21.9 % (13.4-35.0) 04/27/16 05:25 Addison % (Auto) 8.0 % (0.0-7.3) H 04/27/16 05:25 Eos % (Auto) 4.8 % (0.0-4.3) H 04/27/16 05:25 Baso % (Auto) 1.0 % (0.0-1.8) 04/27/16 05:25 Lymph # 2.3 K/mm3 (1.2-5.4) 04/27/16 05:25 Addison # 0.8 K/mm3 (0.0-0.8) 04/27/16 05:25 Eos # 0.5 K/mm3 (0.0-0.4) H 04/27/16 05:25 Baso # 0.1 K/mm3 (0.0-0.1) 04/27/16 05:25 Seg Neutrophils % 64.3 % (40.0-70.0) 04/27/16 05:25 Seg Neutrophils # 6.7 K/mm3 (1.8-7.7) 04/27/16 05:25 PT 14.7 Sec. (12.2-14.9) 05/03/16 04:22 INR 1.16 (0.87-1.13) H 05/03/16 04:22 APTT 30.2 Sec. (24.2-36.6) 04/30/16 11:44 Thrombin Time 16.3 Sec. (15.1-19.6) 04/27/16 05:25 Heparin Anti-Xa Level 0.32 U.I./ml (0.3-0.7) 05/02/16 19:51 Sodium 140 mmol/L (137-145) 05/02/16 04:44 Potassium 4.2 mmol/L (3.6-5.0) 05/02/16 04:44 Chloride 102.1 mmol/L (98-107) 05/02/16 04:44 Carbon Dioxide 24 mmol/L (22-30) 05/02/16 04:44 Anion Gap 18 mmol/L 05/02/16 04:44 BUN 19 mg/dL (9-20) 05/02/16 04:44 Creatinine 1.6 mg/dL (0.8-1.5) H 05/02/16 04:44 Estimated GFR 48 ml/min 05/02/16 04:44 BUN/Creatinine Ratio 11.87 % 05/02/16 04:44 Glucose 154 mg/dL (75-100) H 05/02/16 04:44 POC Glucose 98 (70-105) 05/01/16 21:19 Calcium 8.7 mg/dL (8.4-10.2) 05/02/16 04:44 Magnesium 1.9 mg/dL (1.7-2.3) 04/29/16 13:31 Total Creatine Kinase 771 units/L (55-170) H 04/27/16 21:13 CK-MB (CK-2) 58.4 ng/mL (0.0-4.0) H 04/27/16 21:13 CK-MB (CK-2) Rel Index 7.5 (0-4) H 04/27/16 21:13 Troponin T 1.240 ng/mL (0.00-0.029) H* 04/28/16 13:40 Triglycerides 101 mg/dL (2-149) 04/27/16 05:25 Cholesterol 178 mg/dL (50-199) 04/27/16 05:25 LDL Cholesterol Direct 112 mg/dL (50-130) 04/27/16 05:25 HDL Cholesterol 46 mg/dL (40-59) 04/27/16 05:25 Cholesterol/HDL Ratio 3.86 % 04/27/16 05:25 TSH 2.220 mlU/mL (0.270-4.200) 04/28/16 04:16
[2016-05-03] MEDS: HALFPRIN EC PO SCH (13:04)
[2016-05-03] MEDS: PLAVIX PO SCH (13:04)
[2016-05-03] MEDS: LOVENOX SUB-Q SCH ×2 (17:39→21:58)
[2016-05-03] MEDS: COUMADIN PO SCH (17:39)
[2016-05-04 05:07] LABS: Hematocrit 40.2 % (35.5-45.6); Hemoglobin 13.3 gm/dl (11.8-15.2)
[2016-05-04 05:17] LABS: INR 1.33 (0.87-1.13)
[2016-05-04] MEDS: BIDIL 20/37.5MG PO SCH ×3 (05:57→23:10)
--- NOTE | 2016-05-04 09:12 | Progress Note ---
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 Acute CVA Dr. Devon Uriostegui input appreciated continue statin, will need [facility] anticoagulation, cont ASA, plavix embolic stroke, needs aggressive anticoagulation, improving with PT 2. NSTEMI AND NONSUSTAINED V. TACH hx of recent stent for CAD 4 months ago Cardiology input appreciated, severe cardiomyopathy noted with probable apical thrombus, full dose lovenox and warfarin sp cardiac cath, 3 vessel disease not ammenable to stenting or angioplasty, continue medical therapy Needs Lifevest prior to DC 3. Dysphagia continue pureed diet, and keep upright, continue to re-enforce, small bites, sips of liquids, no straws, speech therapy input appreciated 4. Suicidal Ideation now resolved, mental health input appreciated, dc 1013 on 04/28/16 Dispo; tentative dc to rehab in 1-2 days History Interval history: continues to have Left arm weakness and slurred speech, denies ARROYO, CP , or palpitations Hospitalist Physical - Physical exam Narrative exam: General: Patient appears well in no distress HEENT: MMM, EOMI cardiac: S1-S2 heard lungs: clear to auscultation, abdomen: soft, nontender, nondistended bowel sounds positive extremities: no edema clubbing or cyanosis Skin: no rash or lesion Neuro: Slurred speech, left UE weakness - Constitutional Vitals: Temp Pulse Resp BP Pulse Ox 97 F L 64 18 142/91 96 05/04/16 08:00 05/04/16 08:00 05/04/16 08:00 05/04/16 08:00 05/04/16 08:00 General appearance: Present: no acute distress Results - Labs CBC & Chem 7: 05/04/16 04:29 05/02/16 04:44 Labs: Laboratory Last Values WBC 10.4 K/mm3 (4.5-11.0) 04/27/16 05:25 RBC 4.85 M/mm3 (3.65-5.03) 04/27/16 05:25 Hgb 13.3 gm/dl (11.8-15.2) 05/04/16 04:29 Hct 40.2 % (35.5-45.6) 05/04/16 04:29 MCV 92 fl (84-94) 04/27/16 05:25 MCH 30 pg (28-32) 04/27/16 05:25 MCHC 32 % (32-34) 04/27/16 05:25 RDW 15.1 % (13.2-15.2) 04/27/16 05:25 Plt Count 288 K/mm3 (140-440) 05/04/16 04:29 Lymph % (Auto) 21.9 % (13.4-35.0) 04/27/16 05:25 Mathews % (Auto) 8.0 % (0.0-7.3) H 04/27/16 05:25 Eos % (Auto) 4.8 % (0.0-4.3) H 04/27/16 05:25 Baso % (Auto) 1.0 % (0.0-1.8) 04/27/16 05:25 Lymph # 2.3 K/mm3 (1.2-5.4) 04/27/16 05:25 Mathews # 0.8 K/mm3 (0.0-0.8) 04/27/16 05:25 Eos # 0.5 K/mm3 (0.0-0.4) H 04/27/16 05:25 Baso # 0.1 K/mm3 (0.0-0.1) 04/27/16 05:25 Seg Neutrophils % 64.3 % (40.0-70.0) 04/27/16 05:25 Seg Neutrophils # 6.7 K/mm3 (1.8-7.7) 04/27/16 05:25 PT 16.4 Sec. (12.2-14.9) H 05/04/16 04:29 INR 1.33 (0.87-1.13) H 05/04/16 04:29 APTT 30.2 Sec. (24.2-36.6) 04/30/16 11:44 Thrombin Time 16.3 Sec. (15.1-19.6) 04/27/16 05:25 Heparin Anti-Xa Level 0.10 U.I./ml (0.3-0.7) L 05/03/16 18:49 Sodium 140 mmol/L (137-145) 05/02/16 04:44 Potassium 4.2 mmol/L (3.6-5.0) 05/02/16 04:44 Chloride 102.1 mmol/L (98-107) 05/02/16 04:44 Carbon Dioxide 24 mmol/L (22-30) 05/02/16 04:44 Anion Gap 18 mmol/L 05/02/16 04:44 BUN 19 mg/dL (9-20) 05/02/16 04:44 Creatinine 1.6 mg/dL (0.8-1.5) H 05/02/16 04:44 Estimated GFR 48 ml/min 05/02/16 04:44 BUN/Creatinine Ratio 11.87 % 05/02/16 04:44 Glucose 154 mg/dL (75-100) H 05/02/16 04:44 POC Glucose 98 (70-105) 05/01/16 21:19 Calcium 8.7 mg/dL (8.4-10.2) 05/02/16 04:44 Magnesium 1.9 mg/dL (1.7-2.3) 04/29/16 13:31 Total Creatine Kinase 771 units/L (55-170) H 04/27/16 21:13 CK-MB (CK-2) 58.4 ng/mL (0.0-4.0) H 04/27/16 21:13 CK-MB (CK-2) Rel Index 7.5 (0-4) H 04/27/16 21:13 Troponin T 1.240 ng/mL (0.00-0.029) H* 04/28/16 13:40 Triglycerides 101 mg/dL (2-149) 04/27/16 05:25 Cholesterol 178 mg/dL (50-199) 04/27/16 05:25 LDL Cholesterol Direct 112 mg/dL (50-130) 04/27/16 05:25 HDL Cholesterol 46 mg/dL (40-59) 04/27/16 05:25 Cholesterol/HDL Ratio 3.86 % 04/27/16 05:25 TSH 2.220 mlU/mL (0.270-4.200) 04/28/16 04:16
[2016-05-04] MEDS: HALFPRIN EC PO SCH (11:37)
[2016-05-04] MEDS: PLAVIX PO SCH (11:37)
[2016-05-04] MEDS: LOVENOX SUB-Q SCH ×2 (11:38→23:09)
[2016-05-04] MEDS: ZESTRIL PO SCH (11:38)
[2016-05-04] MEDS: LOPRESSOR PO SCH ×2 (11:38→23:11)
[2016-05-04] MEDS: CORDARONE PO SCH ×2 (11:38→23:10)
--- NOTE | 2016-05-04 15:17 | Progress Note ---
Assessment and Plan Acute CVA NSTEMI Cardiac cath findings: 1. Severe 3 vessel disease 2. Patent RIOS-LAD 3. Occluded sequential SVG to circ OM and PLV br 4. Patent SVG to Ac marginal branch of RCA 5. Patent mid RCA stent 6. Severe diffuse disease of distal/terminal branches of the RCA and circumflex, no amenable to revascularization. NSVT -paroxysmal normal TSH Hx of CAD s/p remote CABG Ischemic Cardiomyopathy Echocardiogram shows a severe cardiomyopathy EF 15% Small apical left ventricular thrombus on echo this admission Suicidal ideation -was inpatient at [facility] Recommend: 1. Aggressive RF modification. 2. Medical therapy for CAD and heart failure-nitrates, betablockers, statin, afterload therapy and ASA/plavix. 3. Continue Coumadin for LV apex thrombus, continue low intensity heparin until INR is therapeutic. 4. 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 Subjective Date of service: 05/04/16 Interval history: Patient has no complaints. Awaits lifevest placement. Objective Vital Signs Temp Pulse Pulse Pulse Resp BP Pulse Ox 05/04/16 12:00 98.8 F 72 20 172/110 98 05/04/16 08:00 97 F L 64 18 142/91 96 05/04/16 07:18 98.0 F 65 18 150/104 100 05/04/16 01:51 97.8 F 68 20 138/92 96 05/03/16 19:58 73 05/03/16 19:47 98.7 F 71 20 132/79 98 05/03/16 16:00 97.3 F L 68 20 131/81 97 - Physical Examination General: No Apparent Distress HEENT: Positive: PERRL Neck: Positive: trachea midline Cardiac: Positive: Reg Rate and Rhythm Lungs: Positive: Decreased Breath Sounds Neuro: Positive: Weakness (LUE hemiparesis) Extremities: Absent: edema - Labs and Meds Coagulation 05/04/16 Range/Units 04:29 PT 16.4 H (12.2-14.9) Sec. INR 1.33 H (0.87-1.13) CBC 05/04/16 Range/Units 04:29 Hgb 13.3 (11.8-15.2) gm/dl Hct 40.2 (35.5-45.6) % Plt Count 288 (140-440) K/mm3 - Imaging and Cardiology EKG: image reviewed (nonsustained V. tach, 128)
[2016-05-04] MEDS: COUMADIN PO SCH (18:34)
[2016-05-05 05:39] LABS: Hematocrit 41.7 % (35.5-45.6); Hemoglobin 13.6 gm/dl (11.8-15.2)
[2016-05-05 05:52] LABS: INR 1.38 (0.87-1.13)
[2016-05-05] MEDS: BIDIL 20/37.5MG PO SCH ×3 (06:17→21:59)
--- NOTE | 2016-05-05 12:14 | Progress Note ---
Addendum entered and electronically signed by SABA SMITH MD 05/05/16 12:46 : Okay for cardiac discharge on medical therapy for coronary disease, ischemic cardiomyopathy, with LifeVest monitoring. Cardiology office follow-up visit within one week of discharge. Original Note: Assessment and Plan Acute CVA NSTEMI Cardiac cath findings: 1. Severe 3 vessel disease 2. Patent RIOS-LAD 3. Occluded sequential SVG to circ OM and PLV br 4. Patent SVG to Ac marginal branch of RCA 5. Patent mid RCA stent 6. Severe diffuse disease of distal/terminal branches of the RCA and circumflex, no amenable to revascularization. NSVT -paroxysmal normal TSH Hx of CAD s/p remote CABG Ischemic Cardiomyopathy Echocardiogram shows a severe cardiomyopathy EF 15% Small apical left ventricular thrombus on echo this admission Suicidal ideation -was inpatient at [facility] Recommend: 1. Aggressive RF modification. 2. Medical therapy for CAD and heart failure-nitrates, betablockers, statin, afterload therapy and ASA/plavix. 3. Continue Coumadin for LV apex thrombus, continue low intensity heparin until INR is therapeutic. 4. Awaits Lifevest for wide complex tachycardia. He will ultimately benefit from ICD, on further outpatient evaluation after he is fully rehabbed from CVA. \ Subjective Date of service: 05/05/16 Interval history: Patient has no complaints. Awaits lifevest placement. Objective Vital Signs Temp Pulse Pulse Pulse Pulse Resp BP 05/05/16 11:31 97.8 F 70 18 150/102 05/05/16 08:40 98.6 F 66 16 122/77 05/05/16 07:44 97.8 F 72 18 05/05/16 02:00 76 05/05/16 00:00 98.1 F 73 20 05/04/16 20:00 97.6 F 67 20 05/04/16 18:57 72 05/04/16 16:00 98.8 F 71 20 BP Pulse Ox 05/05/16 11:31 96 05/05/16 08:40 99 05/05/16 07:44 139/90 99 05/05/16 02:00 05/05/16 00:00 134/77 97 05/04/16 20:00 145/89 98 05/04/16 18:57 05/04/16 16:00 171/107 - Physical Examination General: No Apparent Distress HEENT: Positive: PERRL Neck: Positive: trachea midline Cardiac: Positive: Reg Rate and Rhythm Lungs: Positive: Decreased Breath Sounds Neuro: Positive: Weakness (LUE hemiparesis) Extremities: Absent: edema - Labs and Meds Coagulation 05/05/16 Range/Units 04:38 PT 16.9 H (12.2-14.9) Sec. INR 1.38 H (0.87-1.13) CBC 05/05/16 Range/Units 04:38 Hgb 13.6 (11.8-15.2) gm/dl Hct 41.7 (35.5-45.6) % Plt Count 313 (140-440) K/mm3 - Imaging and Cardiology EKG: image reviewed (nonsustained V. tach, 128)
--- NOTE | 2016-05-05 12:19 | Progress Note ---
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 Acute CVA Dr. Devon Uriostegui input appreciated continue statin, will need intermediate anticoagulation, cont ASA, plavix embolic stroke, needs aggressive risk factor modification and anticoagulation, improving with PT 2. NSTEMI AND NONSUSTAINED V. TACH hx of recent stent for CAD 4 months ago Cardiology input appreciated, severe cardiomyopathy noted with probable apical thrombus, full dose lovenox and warfarin sp cardiac cath, 3 vessel disease not ammenable to stenting or angioplasty, continue medical therapy Needs Lifevest prior to DC, and will need ICD in long run for wide complex tachycardia 3. Dysphagia advance diet, speech therapy input appreciated 4. Suicidal Ideation now resolved, mental health input appreciated, dc 1013 on 04/28/16 Dispo; tentative dc home when INR is 2 and when Lifevest has been delivered History Interval history: continues to have Left arm weakness and slurred speech, he is improving,he is now able to walk, feed and dress himself, denies ARROYO, CP , or palpitations Hospitalist Physical - Physical exam Narrative exam: General: Patient appears well in no distress HEENT: MMM, EOMI cardiac: S1-S2 heard lungs: clear to auscultation, abdomen: soft, nontender, nondistended bowel sounds positive extremities: no edema clubbing or cyanosis Skin: no rash or lesion Neuro: Slurred speech, left UE weakness - Constitutional Vitals: Temp Pulse Resp BP Pulse Ox 97.8 F 70 18 150/102 96 05/05/16 11:31 05/05/16 11:31 05/05/16 11:31 05/05/16 11:31 05/05/16 11:31 General appearance: Present: no acute distress Results - Labs CBC & Chem 7: 05/05/16 04:38 05/02/16 04:44 Labs: Laboratory Last Values WBC 10.4 K/mm3 (4.5-11.0) 04/27/16 05:25 RBC 4.85 M/mm3 (3.65-5.03) 04/27/16 05:25 Hgb 13.6 gm/dl (11.8-15.2) 05/05/16 04:38 Hct 41.7 % (35.5-45.6) 05/05/16 04:38 MCV 92 fl (84-94) 04/27/16 05:25 MCH 30 pg (28-32) 04/27/16 05:25 MCHC 32 % (32-34) 04/27/16 05:25 RDW 15.1 % (13.2-15.2) 04/27/16 05:25 Plt Count 313 K/mm3 (140-440) 05/05/16 04:38 Lymph % (Auto) 21.9 % (13.4-35.0) 04/27/16 05:25 [place] % (Auto) 8.0 % (0.0-7.3) H 04/27/16 05:25 Eos % (Auto) 4.8 % (0.0-4.3) H 04/27/16 05:25 Baso % (Auto) 1.0 % (0.0-1.8) 04/27/16 05:25 Lymph # 2.3 K/mm3 (1.2-5.4) 04/27/16 05:25 [place] # 0.8 K/mm3 (0.0-0.8) 04/27/16 05:25 Eos # 0.5 K/mm3 (0.0-0.4) H 04/27/16 05:25 Baso # 0.1 K/mm3 (0.0-0.1) 04/27/16 05:25 Seg Neutrophils % 64.3 % (40.0-70.0) 04/27/16 05:25 Seg Neutrophils # 6.7 K/mm3 (1.8-7.7) 04/27/16 05:25 PT 16.9 Sec. (12.2-14.9) H 05/05/16 04:38 INR 1.38 (0.87-1.13) H 05/05/16 04:38 APTT 30.2 Sec. (24.2-36.6) 04/30/16 11:44 Thrombin Time 16.3 Sec. (15.1-19.6) 04/27/16 05:25 Heparin Anti-Xa Level 0.10 U.I./ml (0.3-0.7) L 05/03/16 18:49 Sodium 140 mmol/L (137-145) 05/02/16 04:44 Potassium 4.2 mmol/L (3.6-5.0) 05/02/16 04:44 Chloride 102.1 mmol/L (98-107) 05/02/16 04:44 Carbon Dioxide 24 mmol/L (22-30) 05/02/16 04:44 Anion Gap 18 mmol/L 05/02/16 04:44 BUN 19 mg/dL (9-20) 05/02/16 04:44 Creatinine 1.6 mg/dL (0.8-1.5) H 05/02/16 04:44 Estimated GFR 48 ml/min 05/02/16 04:44 BUN/Creatinine Ratio 11.87 % 05/02/16 04:44 Glucose 154 mg/dL (75-100) H 05/02/16 04:44 POC Glucose 84 (70-105) 05/05/16 11:46 Calcium 8.7 mg/dL (8.4-10.2) 05/02/16 04:44 Magnesium 1.9 mg/dL (1.7-2.3) 04/29/16 13:31 Total Creatine Kinase 771 units/L (55-170) H 04/27/16 21:13 CK-MB (CK-2) 58.4 ng/mL (0.0-4.0) H 04/27/16 21:13 CK-MB (CK-2) Rel Index 7.5 (0-4) H 04/27/16 21:13 Troponin T 1.240 ng/mL (0.00-0.029) H* 04/28/16 13:40 Triglycerides 101 mg/dL (2-149) 04/27/16 05:25 Cholesterol 178 mg/dL (50-199) 04/27/16 05:25 LDL Cholesterol Direct 112 mg/dL (50-130) 04/27/16 05:25 HDL Cholesterol 46 mg/dL (40-59) 04/27/16 05:25 Cholesterol/HDL Ratio 3.86 % 04/27/16 05:25 TSH 2.220 mlU/mL (0.270-4.200) 04/28/16 04:16
[2016-05-05] MEDS: HALFPRIN EC PO SCH (12:22)
[2016-05-05] MEDS: PLAVIX PO SCH (12:22)
[2016-05-05] MEDS: LOPRESSOR PO SCH ×2 (12:22→21:59)
[2016-05-05] MEDS: ZESTRIL PO SCH (12:22)
[2016-05-05] MEDS: CORDARONE PO SCH ×2 (12:23→21:59)
[2016-05-05] MEDS: LOVENOX SUB-Q SCH ×2 (12:23→21:58)
[2016-05-05] MEDS: COUMADIN PO SCH (19:21)
[2016-05-06 05:09] LABS: Hematocrit 40.6 % (35.5-45.6); Hemoglobin 12.9 gm/dl (11.8-15.2)
[2016-05-06 05:21] LABS: INR 1.49 (0.87-1.13)
[2016-05-06] MEDS: BIDIL 20/37.5MG PO SCH ×3 (05:40→22:13)
[2016-05-06] MEDS: CORDARONE PO SCH (10:16)
[2016-05-06] MEDS: HALFPRIN EC PO SCH (10:16)
[2016-05-06] MEDS: LOVENOX SUB-Q SCH ×2 (10:16→22:06)
[2016-05-06] MEDS: PLAVIX PO SCH (10:16)
[2016-05-06] MEDS: ZESTRIL PO SCH (10:16)
[2016-05-06] MEDS: LOPRESSOR PO SCH ×2 (10:18→22:06)
--- NOTE | 2016-05-06 11:07 | Progress Note ---
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 Acute CVA Dr. Devon Uriostegui input appreciated continue statin, will need jail anticoagulation, cont ASA, plavix embolic stroke, needs aggressive risk factor modification and anticoagulation, improving with PT 2. NSTEMI AND NONSUSTAINED V. TACH hx of recent stent for CAD 4 months ago Cardiology input appreciated, severe cardiomyopathy noted with probable apical thrombus, full dose lovenox and warfarin sp cardiac cath, 3 vessel disease not ammenable to stenting or angioplasty, continue medical therapy Needs Lifevest prior to DC, and will need ICD in long run for wide complex tachycardia 3. Dysphagia advance diet, speech therapy input appreciated 4. Suicidal Ideation now resolved, mental health input appreciated, dc 1013 on 04/28/16 Dispo; tentative dc home when INR is 2 and when Lifevest has been delivered History Interval history: continues to have Left arm weakness and slurred speech, he is improving,he is now able to walk, feed and dress himself, denies ARROYO, CP , or palpitations Hospitalist Physical - Physical exam Narrative exam: General: Patient appears well in no distress HEENT: MMM, EOMI cardiac: S1-S2 heard lungs: clear to auscultation, abdomen: soft, nontender, nondistended bowel sounds positive extremities: no edema clubbing or cyanosis Skin: no rash or lesion Neuro: Slurred speech, left UE weakness - Constitutional Vitals: Temp Pulse Resp BP Pulse Ox 98.3 F 70 20 129/82 97 05/06/16 07:25 05/06/16 10:18 05/06/16 07:25 05/06/16 10:18 05/06/16 07:25 General appearance: Present: no acute distress Results - Labs CBC & Chem 7: 05/06/16 04:26 05/02/16 04:44 Labs: Laboratory Last Values WBC 10.4 K/mm3 (4.5-11.0) 04/27/16 05:25 RBC 4.85 M/mm3 (3.65-5.03) 04/27/16 05:25 Hgb 12.9 gm/dl (11.8-15.2) 05/06/16 04:26 Hct 40.6 % (35.5-45.6) 05/06/16 04:26 MCV 92 fl (84-94) 04/27/16 05:25 MCH 30 pg (28-32) 04/27/16 05:25 MCHC 32 % (32-34) 04/27/16 05:25 RDW 15.1 % (13.2-15.2) 04/27/16 05:25 Plt Count 280 K/mm3 (140-440) 05/06/16 04:26 Lymph % (Auto) 21.9 % (13.4-35.0) 04/27/16 05:25 [place] % (Auto) 8.0 % (0.0-7.3) H 04/27/16 05:25 Eos % (Auto) 4.8 % (0.0-4.3) H 04/27/16 05:25 Baso % (Auto) 1.0 % (0.0-1.8) 04/27/16 05:25 Lymph # 2.3 K/mm3 (1.2-5.4) 04/27/16 05:25 [place] # 0.8 K/mm3 (0.0-0.8) 04/27/16 05:25 Eos # 0.5 K/mm3 (0.0-0.4) H 04/27/16 05:25 Baso # 0.1 K/mm3 (0.0-0.1) 04/27/16 05:25 Seg Neutrophils % 64.3 % (40.0-70.0) 04/27/16 05:25 Seg Neutrophils # 6.7 K/mm3 (1.8-7.7) 04/27/16 05:25 PT 18.0 Sec. (12.2-14.9) H 05/06/16 04:26 INR 1.49 (0.87-1.13) H 05/06/16 04:26 APTT 30.2 Sec. (24.2-36.6) 04/30/16 11:44 Thrombin Time 16.3 Sec. (15.1-19.6) 04/27/16 05:25 Heparin Anti-Xa Level 0.10 U.I./ml (0.3-0.7) L 05/03/16 18:49 Sodium 140 mmol/L (137-145) 05/02/16 04:44 Potassium 4.2 mmol/L (3.6-5.0) 05/02/16 04:44 Chloride 102.1 mmol/L (98-107) 05/02/16 04:44 Carbon Dioxide 24 mmol/L (22-30) 05/02/16 04:44 Anion Gap 18 mmol/L 05/02/16 04:44 BUN 19 mg/dL (9-20) 05/02/16 04:44 Creatinine 1.6 mg/dL (0.8-1.5) H 05/02/16 04:44 Estimated GFR 48 ml/min 05/02/16 04:44 BUN/Creatinine Ratio 11.87 % 05/02/16 04:44 Glucose 154 mg/dL (75-100) H 05/02/16 04:44 POC Glucose 84 (70-105) 05/05/16 11:46 Calcium 8.7 mg/dL (8.4-10.2) 05/02/16 04:44 Magnesium 1.9 mg/dL (1.7-2.3) 04/29/16 13:31 Total Creatine Kinase 771 units/L (55-170) H 04/27/16 21:13 CK-MB (CK-2) 58.4 ng/mL (0.0-4.0) H 04/27/16 21:13 CK-MB (CK-2) Rel Index 7.5 (0-4) H 04/27/16 21:13 Troponin T 1.240 ng/mL (0.00-0.029) H* 04/28/16 13:40 Triglycerides 101 mg/dL (2-149) 04/27/16 05:25 Cholesterol 178 mg/dL (50-199) 04/27/16 05:25 LDL Cholesterol Direct 112 mg/dL (50-130) 04/27/16 05:25 HDL Cholesterol 46 mg/dL (40-59) 04/27/16 05:25 Cholesterol/HDL Ratio 3.86 % 04/27/16 05:25 TSH 2.220 mlU/mL (0.270-4.200) 04/28/16 04:16 Hepatitis A IgM Ab -1 (NonReactive) 05/05/16 13:37 Hep Bs Antigen Non-reactive (Negative) 05/05/16 13:37 Hep B Core IgM Ab Non-reactive (NonReactive) 05/05/16 13:37 Hepatitis C Antibody Non-reactive (NonReactive) 05/05/16 13:37
--- NOTE | 2016-05-06 11:24 | Progress Note ---
Assessment and Plan Acute CVA NSTEMI Cardiac cath findings: 1. Severe 3 vessel disease 2. Patent RIOS-LAD 3. Occluded sequential SVG to circ OM and PLV br 4. Patent SVG to Ac marginal branch of RCA 5. Patent mid RCA stent 6. Severe diffuse disease of distal/terminal branches of the RCA and circumflex, no amenable to revascularization. NSVT -paroxysmal normal TSH Hx of CAD s/p remote CABG Ischemic Cardiomyopathy Echocardiogram shows a severe cardiomyopathy EF 15% Small apical left ventricular thrombus on echo this admission Suicidal ideation -was inpatient at [facility] Recommend: Continue medical therapy for CAD and heart failure. Continue Coumadin for LV apex thrombus Lifevest for wide complex tachycardia will be placed the day of discharge. Once discharged, outpatient cardiology follow-up visit within one week. Subjective Date of service: 05/06/16 Interval history: Patient has no complaints. Awaits therapeutic INR. For lifevest placement the day of discharge. Objective Vital Signs Temp Pulse Pulse Resp BP BP Pulse Ox 05/06/16 10:18 70 129/82 05/06/16 10:16 70 129/82 05/06/16 07:25 98.3 F 70 20 129/82 97 05/06/16 05:00 98.4 F 52 L 19 117/76 98 05/06/16 00:00 98.2 F 66 21 129/80 98 05/05/16 22:00 71 18 05/05/16 20:00 98.3 F 65 19 161/106 97 05/05/16 18:00 81 05/05/16 11:31 97.8 F 70 18 150/102 96 - Physical Examination General: No Apparent Distress HEENT: Positive: PERRL Neck: Positive: trachea midline Cardiac: Positive: Reg Rate and Rhythm Lungs: Positive: Decreased Breath Sounds Neuro: Positive: Weakness (LUE hemiparesis) Extremities: Absent: edema - Labs and Meds Coagulation 05/06/16 Range/Units 04:26 PT 18.0 H (12.2-14.9) Sec. INR 1.49 H (0.87-1.13) CBC 05/06/16 Range/Units 04:26 Hgb 12.9 (11.8-15.2) gm/dl Hct 40.6 (35.5-45.6) % Plt Count 280 (140-440) K/mm3 - Imaging and Cardiology EKG: image reviewed (nonsustained V. tach, 128)
[2016-05-06] MEDS: TYLENOL PO PRN (16:25)
[2016-05-06] MEDS: COUMADIN PO SCH (17:04)
[2016-05-07] MEDS: BIDIL 20/37.5MG PO SCH ×3 (05:41→21:48)
[2016-05-07 07:19] LABS: INR 1.72 (0.87-1.13)
[2016-05-07] MEDS: HALFPRIN EC PO SCH (10:08)
[2016-05-07] MEDS: PLAVIX PO SCH (10:08)
[2016-05-07] MEDS: CORDARONE PO SCH (10:08)
[2016-05-07] MEDS: LOPRESSOR PO SCH ×2 (10:08→21:49)
[2016-05-07] MEDS: ZESTRIL PO SCH (10:08)
[2016-05-07] MEDS: LOVENOX SUB-Q SCH ×2 (10:09→21:47)
--- NOTE | 2016-05-07 10:57 | Progress Note ---
Assessment and Plan Acute CVA NSTEMI Cardiac cath findings: 1. Severe 3 vessel disease 2. Patent RIOS-LAD 3. Occluded sequential SVG to circ OM and PLV br 4. Patent SVG to Ac marginal branch of RCA 5. Patent mid RCA stent 6. Severe diffuse disease of distal/terminal branches of the RCA and circumflex, no amenable to revascularization. NSVT -normal TSH Hx of CAD s/p remote CABG Ischemic Cardiomyopathy Echocardiogram shows a severe cardiomyopathy EF 15% Small apical left ventricular thrombus on echo this admission Suicidal ideation -was inpatient at [facility] Recommend: Continue medical therapy for CAD and heart failure. Continue Coumadin for LV apex thrombus Lifevest for wide complex tachycardia will be placed the day of discharge. Once discharged, [facility]. Subjective Date of service: 05/07/16 Interval history: Patient has no complaints. Awaits therapeutic INR. For lifevest placement the day of discharge. Objective Vital Signs Temp Pulse Pulse Resp BP BP Pulse Ox 05/07/16 10:08 68 127/77 05/07/16 10:00 67 05/07/16 05:41 62 134/83 05/07/16 05:08 97.9 F 62 20 134/83 97 05/07/16 01:13 97.6 F 60 18 140/92 99 05/06/16 22:06 66 152/97 05/06/16 22:00 68 05/06/16 21:13 66 20 05/06/16 20:56 98.6 F 66 20 152/97 97 05/06/16 15:51 98.2 F 60 20 130/76 98 05/06/16 15:10 72 136/94 05/06/16 11:30 98.6 F 72 20 136/94 98 - Physical Examination General: No Apparent Distress HEENT: Positive: PERRL Neck: Positive: trachea midline Cardiac: Positive: Reg Rate and Rhythm Lungs: Positive: Decreased Breath Sounds Extremities: Absent: edema - Labs and Meds Coagulation 05/07/16 Range/Units 05:30 PT 20.1 H (12.2-14.9) Sec. INR 1.72 H (0.87-1.13) - Imaging and Cardiology EKG: image reviewed (nonsustained V. tach, 128)
--- NOTE | 2016-05-07 11:26 | Progress Note ---
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 Acute CVA Dr. Devon Uriostegui input appreciated continue statin, will need snf anticoagulation, cont ASA, plavix embolic stroke, needs aggressive risk factor modification and anticoagulation, improving with PT 2. NSTEMI AND NONSUSTAINED V. TACH hx of recent stent for CAD 4 months ago Cardiology input appreciated, severe cardiomyopathy noted with probable apical thrombus, full dose lovenox and warfarin sp cardiac cath, 3 vessel disease not ammenable to stenting or angioplasty, continue medical therapy Needs Lifevest prior to DC, and will need ICD in long run for wide complex tachycardia 3. Dysphagia advance diet, speech therapy input appreciated 4. Suicidal Ideation now resolved, mental health input appreciated, dc 1013 on 04/28/16 5. Nicotine dependence counseled about cessation >10 minutes, nicotine patch ordered Dispo; tentative dc home when INR is 2 with lifevest, to fup with Replaced By [facility] within 1 week History Interval history: continues to have Left arm weakness and slurred speech, he is improving,he is now able to walk, feed and dress himself, denies ARROYO, CP , or palpitations Hospitalist Physical - Physical exam Narrative exam: General: Patient appears well in no distress HEENT: MMM, EOMI cardiac: S1-S2 heard lungs: clear to auscultation, abdomen: soft, nontender, nondistended bowel sounds positive extremities: no edema clubbing or cyanosis Skin: no rash or lesion Neuro: Slurred speech, left UE weakness - Constitutional Vitals: Temp Pulse Resp BP Pulse Ox 97.9 F 68 20 127/77 97 05/07/16 05:08 05/07/16 10:08 05/07/16 05:08 05/07/16 10:08 05/07/16 05:08 General appearance: Present: no acute distress Results - Labs CBC & Chem 7: 05/06/16 04:26 05/02/16 04:44 Labs: Laboratory Last Values WBC 10.4 K/mm3 (4.5-11.0) 04/27/16 05:25 RBC 4.85 M/mm3 (3.65-5.03) 04/27/16 05:25 Hgb 12.9 gm/dl (11.8-15.2) 05/06/16 04:26 Hct 40.6 % (35.5-45.6) 05/06/16 04:26 MCV 92 fl (84-94) 04/27/16 05:25 MCH 30 pg (28-32) 04/27/16 05:25 MCHC 32 % (32-34) 04/27/16 05:25 RDW 15.1 % (13.2-15.2) 04/27/16 05:25 Plt Count 280 K/mm3 (140-440) 05/06/16 04:26 Lymph % (Auto) 21.9 % (13.4-35.0) 04/27/16 05:25 [place] % (Auto) 8.0 % (0.0-7.3) H 04/27/16 05:25 Eos % (Auto) 4.8 % (0.0-4.3) H 04/27/16 05:25 Baso % (Auto) 1.0 % (0.0-1.8) 04/27/16 05:25 Lymph # 2.3 K/mm3 (1.2-5.4) 04/27/16 05:25 [place] # 0.8 K/mm3 (0.0-0.8) 04/27/16 05:25 Eos # 0.5 K/mm3 (0.0-0.4) H 04/27/16 05:25 Baso # 0.1 K/mm3 (0.0-0.1) 04/27/16 05:25 Seg Neutrophils % 64.3 % (40.0-70.0) 04/27/16 05:25 Seg Neutrophils # 6.7 K/mm3 (1.8-7.7) 04/27/16 05:25 PT 20.1 Sec. (12.2-14.9) H 05/07/16 05:30 INR 1.72 (0.87-1.13) H 05/07/16 05:30 APTT 30.2 Sec. (24.2-36.6) 04/30/16 11:44 Thrombin Time 16.3 Sec. (15.1-19.6) 04/27/16 05:25 Heparin Anti-Xa Level 0.10 U.I./ml (0.3-0.7) L 05/03/16 18:49 Sodium 140 mmol/L (137-145) 05/02/16 04:44 Potassium 4.2 mmol/L (3.6-5.0) 05/02/16 04:44 Chloride 102.1 mmol/L (98-107) 05/02/16 04:44 Carbon Dioxide 24 mmol/L (22-30) 05/02/16 04:44 Anion Gap 18 mmol/L 05/02/16 04:44 BUN 19 mg/dL (9-20) 05/02/16 04:44 Creatinine 1.6 mg/dL (0.8-1.5) H 05/02/16 04:44 Estimated GFR 48 ml/min 05/02/16 04:44 BUN/Creatinine Ratio 11.87 % 05/02/16 04:44 Glucose 154 mg/dL (75-100) H 05/02/16 04:44 POC Glucose 84 (70-105) 05/05/16 11:46 Calcium 8.7 mg/dL (8.4-10.2) 05/02/16 04:44 Magnesium 1.9 mg/dL (1.7-2.3) 04/29/16 13:31 Total Creatine Kinase 771 units/L (55-170) H 04/27/16 21:13 CK-MB (CK-2) 58.4 ng/mL (0.0-4.0) H 04/27/16 21:13 CK-MB (CK-2) Rel Index 7.5 (0-4) H 04/27/16 21:13 Troponin T 1.240 ng/mL (0.00-0.029) H* 04/28/16 13:40 Triglycerides 101 mg/dL (2-149) 04/27/16 05:25 Cholesterol 178 mg/dL (50-199) 04/27/16 05:25 LDL Cholesterol Direct 112 mg/dL (50-130) 04/27/16 05:25 HDL Cholesterol 46 mg/dL (40-59) 04/27/16 05:25 Cholesterol/HDL Ratio 3.86 % 04/27/16 05:25 TSH 2.220 mlU/mL (0.270-4.200) 04/28/16 04:16 Hepatitis A IgM Ab -1 (NonReactive) 05/05/16 13:37 Hep Bs Antigen Non-reactive (Negative) 05/05/16 13:37 Hep B Core IgM Ab Non-reactive (NonReactive) 05/05/16 13:37 Hepatitis C Antibody Non-reactive (NonReactive) 05/05/16 13:37
[2016-05-07] MEDS: HABITROL TD SCH (13:14)
[2016-05-07] MEDS: COUMADIN PO SCH (17:25)
[2016-05-08 05:42] LABS: Hematocrit 41.5 % (35.5-45.6); Hemoglobin 13.2 gm/dl (11.8-15.2)
[2016-05-08 05:48] LABS: INR 1.64 (0.87-1.13)
[2016-05-08] MEDS: BIDIL 20/37.5MG PO SCH ×3 (06:23→21:42)
[2016-05-08] MEDS: CORDARONE PO SCH (09:26)
[2016-05-08] MEDS: LOPRESSOR PO SCH ×2 (09:26→21:41)
[2016-05-08] MEDS: HALFPRIN EC PO SCH (09:27)
[2016-05-08] MEDS: PLAVIX PO SCH (09:27)
[2016-05-08] MEDS: ZESTRIL PO SCH (09:27)
[2016-05-08] MEDS: ULTRAM PO PRN ×2 (09:27→14:36)
[2016-05-08] MEDS: HABITROL TD SCH (09:27)
[2016-05-08] MEDS: LOVENOX SUB-Q SCH ×2 (09:27→21:42)
--- NOTE | 2016-05-08 10:27 | Progress Note ---
Assessment and Plan Acute CVA NSTEMI Cardiac cath findings: 1. Severe 3 vessel disease 2. Patent RIOS-LAD 3. Occluded sequential SVG to circ OM and PLV br 4. Patent SVG to Ac marginal branch of RCA 5. Patent mid RCA stent 6. Severe diffuse disease of distal/terminal branches of the RCA and circumflex, no amenable to revascularization. NSVT -normal TSH Hx of CAD s/p remote CABG Ischemic Cardiomyopathy Echocardiogram shows a severe cardiomyopathy EF 15% Small apical left ventricular thrombus on echo this admission Suicidal ideation -was inpatient at [facility] Recommend: Continue medical therapy for CAD and heart failure. Continue Coumadin for LV apex thrombus. Target INR 2-3. Lifevest for wide complex tachycardia will be placed the day of discharge. Once discharged, outpatient cardiology follow-up visit with [facility] within one week. Subjective Date of service: 05/08/16 Interval history: Patient has no complaints. Awaits therapeutic INR. For lifevest placement the day of discharge. Objective Vital Signs Temp Pulse Pulse Resp BP BP Pulse Ox 05/08/16 09:27 126/81 05/08/16 09:26 69 126/81 05/08/16 07:08 97.5 F L 69 20 126/81 96 05/08/16 06:23 61 146/92 05/08/16 05:08 97.8 F 61 20 146/92 100 05/08/16 00:33 66 05/08/16 00:31 97.8 F 64 18 130/87 97 05/07/16 21:49 66 163/65 05/07/16 21:48 66 163/65 05/07/16 20:57 66 20 05/07/16 20:29 98.4 F 66 18 163/95 99 05/07/16 17:26 98.2 F 55 L 20 134/74 97 05/07/16 13:14 135/90 05/07/16 12:24 98.2 F 64 20 135/90 97 - Physical Examination General: No Apparent Distress HEENT: Positive: PERRL Neck: Positive: trachea midline Cardiac: Positive: Reg Rate and Rhythm Lungs: Positive: Decreased Breath Sounds Extremities: Absent: edema - Labs and Meds Coagulation 05/08/16 Range/Units 04:47 PT 19.4 H (12.2-14.9) Sec. INR 1.64 H (0.87-1.13) CBC 05/08/16 Range/Units 04:47 Hgb 13.2 (11.8-15.2) gm/dl Hct 41.5 (35.5-45.6) % Plt Count 266 (140-440) K/mm3 - Imaging and Cardiology EKG: image reviewed (nonsustained V. tach, 128)
[2016-05-08] MEDS ORDERED: COUMADIN PO SCH ×2 (17:00)
[2016-05-08] MEDS: COUMADIN PO SCH (17:59)
[2016-05-09] MEDS: BIDIL 20/37.5MG PO SCH ×3 (05:35→22:11)
[2016-05-09 07:40] LABS: INR 1.53 (0.87-1.13)
--- NOTE | 2016-05-09 08:17 | Progress Note ---
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 Acute CVA Dr. Devon Uriostegui input appreciated continue statin, will need assisted anticoagulation, cont ASA, plavix embolic stroke, needs aggressive risk factor modification and anticoagulation, improving with PT 2. NSTEMI AND NONSUSTAINED V. TACH hx of recent stent for CAD 4 months ago Cardiology input appreciated, severe cardiomyopathy noted with probable apical thrombus, full dose lovenox and warfarin sp cardiac cath, 3 vessel disease not ammenable to stenting or angioplasty, continue medical therapy Needs Lifevest prior to DC, and will need ICD in long run for wide complex tachycardia 3. Dysphagia advance diet, speech therapy input appreciated 4. Suicidal Ideation now resolved, mental health input appreciated, dc 1013 on 04/28/16 5. Nicotine dependence counseled about cessation >10 minutes, nicotine patch ordered Dispo; tentative dc home when INR is 2 with lifevest, to fup with [facility] within 1 week History Interval history: continues to have Left arm weakness and slurred speech, he is improving,he is now able to walk, feed and dress himself, denies [place], CP , or palpitations Hospitalist Physical - Physical exam Narrative exam: General: Patient appears well in no distress HEENT: MMM, EOMI cardiac: S1-S2 heard lungs: clear to auscultation, abdomen: soft, nontender, nondistended bowel sounds positive extremities: no edema clubbing or cyanosis Skin: no rash or lesion Neuro: Slurred speech, left UE weakness - Constitutional Vitals: Temp Pulse Resp BP Pulse Ox 97.5 F L 64 20 126/74 99 05/09/16 07:41 05/09/16 07:53 05/09/16 07:41 05/09/16 07:41 05/09/16 05:33 General appearance: Present: no acute distress Results - Labs CBC & Chem 7: 05/08/16 04:47 05/02/16 04:44 Labs: Laboratory Last Values WBC 10.4 K/mm3 (4.5-11.0) 04/27/16 05:25 RBC 4.85 M/mm3 (3.65-5.03) 04/27/16 05:25 Hgb 13.2 gm/dl (11.8-15.2) 05/08/16 04:47 Hct 41.5 % (35.5-45.6) 05/08/16 04:47 MCV 92 fl (84-94) 04/27/16 05:25 MCH 30 pg (28-32) 04/27/16 05:25 MCHC 32 % (32-34) 04/27/16 05:25 RDW 15.1 % (13.2-15.2) 04/27/16 05:25 Plt Count 266 K/mm3 (140-440) 05/08/16 04:47 Lymph % (Auto) 21.9 % (13.4-35.0) 04/27/16 05:25 [place] % (Auto) 8.0 % (0.0-7.3) H 04/27/16 05:25 Eos % (Auto) 4.8 % (0.0-4.3) H 04/27/16 05:25 Baso % (Auto) 1.0 % (0.0-1.8) 04/27/16 05:25 Lymph # 2.3 K/mm3 (1.2-5.4) 04/27/16 05:25 [place] # 0.8 K/mm3 (0.0-0.8) 04/27/16 05:25 Eos # 0.5 K/mm3 (0.0-0.4) H 04/27/16 05:25 Baso # 0.1 K/mm3 (0.0-0.1) 04/27/16 05:25 Seg Neutrophils % 64.3 % (40.0-70.0) 04/27/16 05:25 Seg Neutrophils # 6.7 K/mm3 (1.8-7.7) 04/27/16 05:25 PT 18.4 Sec. (12.2-14.9) H 05/09/16 06:34 INR 1.53 (0.87-1.13) H 05/09/16 06:34 APTT 30.2 Sec. (24.2-36.6) 04/30/16 11:44 Thrombin Time 16.3 Sec. (15.1-19.6) 04/27/16 05:25 Heparin Anti-Xa Level 0.10 U.I./ml (0.3-0.7) L 05/03/16 18:49 Sodium 140 mmol/L (137-145) 05/02/16 04:44 Potassium 4.2 mmol/L (3.6-5.0) 05/02/16 04:44 Chloride 102.1 mmol/L (98-107) 05/02/16 04:44 Carbon Dioxide 24 mmol/L (22-30) 05/02/16 04:44 Anion Gap 18 mmol/L 05/02/16 04:44 BUN 19 mg/dL (9-20) 05/02/16 04:44 Creatinine 1.6 mg/dL (0.8-1.5) H 05/02/16 04:44 Estimated GFR 48 ml/min 05/02/16 04:44 BUN/Creatinine Ratio 11.87 % 05/02/16 04:44 Glucose 154 mg/dL (75-100) H 05/02/16 04:44 POC Glucose 84 (70-105) 05/05/16 11:46 Calcium 8.7 mg/dL (8.4-10.2) 05/02/16 04:44 Magnesium 1.9 mg/dL (1.7-2.3) 04/29/16 13:31 Total Creatine Kinase 771 units/L (55-170) H 04/27/16 21:13 CK-MB (CK-2) 58.4 ng/mL (0.0-4.0) H 04/27/16 21:13 CK-MB (CK-2) Rel Index 7.5 (0-4) H 04/27/16 21:13 Troponin T 1.240 ng/mL (0.00-0.029) H* 04/28/16 13:40 Triglycerides 101 mg/dL (2-149) 04/27/16 05:25 Cholesterol 178 mg/dL (50-199) 04/27/16 05:25 LDL Cholesterol Direct 112 mg/dL (50-130) 04/27/16 05:25 HDL Cholesterol 46 mg/dL (40-59) 04/27/16 05:25 Cholesterol/HDL Ratio 3.86 % 04/27/16 05:25 TSH 2.220 mlU/mL (0.270-4.200) 04/28/16 04:16 Hepatitis A IgM Ab -1 (NonReactive) 05/05/16 13:37 Hep Bs Antigen Non-reactive (Negative) 05/05/16 13:37 Hep B Core IgM Ab Non-reactive (NonReactive) 05/05/16 13:37 Hepatitis C Antibody Non-reactive (NonReactive) 05/05/16 13:37
--- NOTE | 2016-05-09 09:13 | Progress Note ---
Assessment and Plan Assessment and plan: 41-year-old male presents with sequelae from acute CVA in non-ST elevation [place]. Patient presently improving. Awaiting therapeutic INR and LifeVest. Disposition Plan: awaiting therapeutic INR and lightheadedness Total Time Spent with Patient (Minutes): 24 - Patient Problems (1) Dysarthria as late effect of cerebrovascular accident (CVA) Current Visit: Yes Status: Acute Plan to address problem: Patient with acute CVA of MCA. Patient also will chronic lacunar infarcts vertebral artery exclusion. Patient clinically improving with increased strength of his left arm increasing gait decreasing dysarthria. Currently placed on aspirin Plavix statin and Coumadin. Patient INR at this time remains subtherapeutic at 1.53. Plan is to discharge home once INR therapeutic. Patient also need LifeVest prior to discharge. Continue home physical therapy. (2) Elevated troponin Current Visit: Yes Status: Acute Plan to address problem: Patient non-ST elevation [place]. Patient with three-vessel disease unable to stent vessel therefore we are maximizing medical management including beta jennifer aspirin statin Coumadin. Patient has LifeVest ordered. Will be discharged after LifeVest. (3) Hemiparesis affecting left side as late effect of cerebrovascular accident Current Visit: Yes Status: Acute Plan to address problem: Hemiparesis improving aggressive risk factor modification in place. Blood pressure now has optimal control. Statin and anticoagulation in place. (4) NSTEMI (non-ST elevated myocardial infarction) Current Visit: Yes Status: Acute Plan to address problem: Patient placed on aspirin Plavix Coumadin and beta jennifer. Risk factors much better controlled. Patient noted to be increased risk of bleed secondary to multiple anticoagulates. Benefits over risk assessed. We'll further follow-up with cardiology for further recommendations. (5) Nonsustained ventricular tachycardia Current Visit: Yes Status: Acute Plan to address problem: Patient placed on beta jennifer amiodarone stable. Rhythm has been stable. (6) Right-sided cerebrovascular accident (CVA) Current Visit: Yes Status: Acute (7) Hypertension Current Visit: Yes Status: Acute Qualifiers: Hypertension type: essential hypertension Qualified Code(s): I10 - Essential (primary) hypertension Plan to address problem: At present patient has optimal control blood pressure today. We'll continue current beta jennifer and GRACIE inhibitor. (8) Coronary artery disease Current Visit: Yes Status: Acute Qualifiers: Coronary Disease-Associated Artery/Lesion type: [place] artery Associated angina: with stable angina Plan to address problem: Medical management. Patient is not a candidate for any bypass grafting. (9) Systolic congestive heart failure with reduced left ventricular function, NYHA class 2 Current Visit: Yes Status: Acute Plan to address problem: Patient has been placed on GRACIE inhibitor beta jennifer metoprolol lisinopril afterload reduction with Imdur as well. Awaiting life vest for coronary artery disease. Continue medical management ejection fraction 10%. History Interval history: Patient in bed has no concerns at this time. Patient has dysphagia but able to understand the patient. He is able to make needs known at this time. Was able to get up and drink his coffee/juice. Able to get around in the room. All questions and concerns answered. Hospitalist Physical - Constitutional Vitals: Temp Pulse Resp BP Pulse Ox 97.5 F L 64 20 126/74 99 05/09/16 07:41 05/09/16 07:53 05/09/16 07:41 05/09/16 07:41 05/09/16 05:33 General appearance: Present: no acute distress, other (dysphagia) - EENT Eyes: Present: PERRL, EOM intact ENT: hearing intact, dentition normal, other (increase oral secretions) - Neck Neck: Present: supple, normal ROM - Respiratory Respiratory effort: normal Respiratory: bilateral: CTA - Cardiovascular Rhythm: regular Heart Sounds: Present: S1 & S2 - Extremities Extremities: no ischemia, pulses intact, pulses symmetrical Extremity abnormal: edema, cyanosis, clubbing Peripheral Pulses: within normal limits - Abdominal General gastrointestinal: soft, non-tender, non-distended - Psychiatric Psychiatric: appropriate mood/affect - Neurologic Neurologic: focal deficits, other (left upper extremity weakness approximately 4 out of 5) - Allied Health Allied health notes reviewed: PT Results - Labs CBC & Chem 7: 05/08/16 04:47 05/02/16 04:44 Labs: Laboratory Last Values WBC 10.4 K/mm3 (4.5-11.0) 04/27/16 05:25 RBC 4.85 M/mm3 (3.65-5.03) 04/27/16 05:25 Hgb 13.2 gm/dl (11.8-15.2) 05/08/16 04:47 Hct 41.5 % (35.5-45.6) 05/08/16 04:47 MCV 92 fl (84-94) 04/27/16 05:25 MCH 30 pg (28-32) 04/27/16 05:25 MCHC 32 % (32-34) 04/27/16 05:25 RDW 15.1 % (13.2-15.2) 04/27/16 05:25 Plt Count 266 K/mm3 (140-440) 05/08/16 04:47 Lymph % (Auto) 21.9 % (13.4-35.0) 04/27/16 05:25 [place] % (Auto) 8.0 % (0.0-7.3) H 04/27/16 05:25 Eos % (Auto) 4.8 % (0.0-4.3) H 04/27/16 05:25 Baso % (Auto) 1.0 % (0.0-1.8) 04/27/16 05:25 Lymph # 2.3 K/mm3 (1.2-5.4) 04/27/16 05:25 [place] # 0.8 K/mm3 (0.0-0.8) 04/27/16 05:25 Eos # 0.5 K/mm3 (0.0-0.4) H 04/27/16 05:25 Baso # 0.1 K/mm3 (0.0-0.1) 04/27/16 05:25 Seg Neutrophils % 64.3 % (40.0-70.0) 04/27/16 05:25 Seg Neutrophils # 6.7 K/mm3 (1.8-7.7) 04/27/16 05:25 PT 18.4 Sec. (12.2-14.9) H 05/09/16 06:34 INR 1.53 (0.87-1.13) H 05/09/16 06:34 APTT 30.2 Sec. (24.2-36.6) 04/30/16 11:44 Thrombin Time 16.3 Sec. (15.1-19.6) 04/27/16 05:25 Heparin Anti-Xa Level 0.10 U.I./ml (0.3-0.7) L 05/03/16 18:49 Sodium 140 mmol/L (137-145) 05/02/16 04:44 Potassium 4.2 mmol/L (3.6-5.0) 05/02/16 04:44 Chloride 102.1 mmol/L (98-107) 05/02/16 04:44 Carbon Dioxide 24 mmol/L (22-30) 05/02/16 04:44 Anion Gap 18 mmol/L 05/02/16 04:44 BUN 19 mg/dL (9-20) 05/02/16 04:44 Creatinine 1.6 mg/dL (0.8-1.5) H 05/02/16 04:44 Estimated GFR 48 ml/min 05/02/16 04:44 BUN/Creatinine Ratio 11.87 % 05/02/16 04:44 Glucose 154 mg/dL (75-100) H 05/02/16 04:44 POC Glucose 84 (70-105) 05/05/16 11:46 Calcium 8.7 mg/dL (8.4-10.2) 05/02/16 04:44 Magnesium 1.9 mg/dL (1.7-2.3) 04/29/16 13:31 Total Creatine Kinase 771 units/L (55-170) H 04/27/16 21:13 CK-MB (CK-2) 58.4 ng/mL (0.0-4.0) H 04/27/16 21:13 CK-MB (CK-2) Rel Index 7.5 (0-4) H 04/27/16 21:13 Troponin T 1.240 ng/mL (0.00-0.029) H* 04/28/16 13:40 Triglycerides 101 mg/dL (2-149) 04/27/16 05:25 Cholesterol 178 mg/dL (50-199) 04/27/16 05:25 LDL Cholesterol Direct 112 mg/dL (50-130) 04/27/16 05:25 HDL Cholesterol 46 mg/dL (40-59) 04/27/16 05:25 Cholesterol/HDL Ratio 3.86 % 04/27/16 05:25 TSH 2.220 mlU/mL (0.270-4.200) 04/28/16 04:16 Hepatitis A IgM Ab -1 (NonReactive) 05/05/16 13:37 Hep Bs Antigen Non-reactive (Negative) 05/05/16 13:37 Hep B Core IgM Ab Non-reactive (NonReactive) 05/05/16 13:37 Hepatitis C Antibody Non-reactive (NonReactive) 05/05/16 13:37 - Imaging and Cardiology Chest x-ray: image reviewed CT Scan - head: report reviewed, image reviewed MRI - head: report reviewed Venous US: report reviewed
[2016-05-09] MEDS: HALFPRIN EC PO SCH (10:02)
[2016-05-09] MEDS: HABITROL TD SCH (10:02)
[2016-05-09] MEDS: CORDARONE PO SCH (10:03)
[2016-05-09] MEDS: LOPRESSOR PO SCH ×2 (10:03→22:12)
[2016-05-09] MEDS: ZESTRIL PO SCH (10:03)
[2016-05-09] MEDS: LOVENOX SUB-Q SCH ×2 (10:03→22:12)
[2016-05-09] MEDS: PLAVIX PO SCH (10:03)
--- NOTE | 2016-05-09 13:15 | Progress Note ---
Assessment and Plan - Patient Problems (1) Nonsustained ventricular tachycardia Current Visit: Yes Status: Acute Plan to address problem: LifeVest in place, patient's INR is 1.5, awaiting discharge when optimally anticoagulated. Subjective Date of service: 05/09/16 Interval history: Patient is comfortable, LifeVest in place, no cardiac complaints. Objective Vital Signs Temp Pulse Pulse Pulse Resp BP BP 05/09/16 07:53 64 05/09/16 07:41 97.5 F L 62 20 126/74 05/09/16 05:33 97.8 F 62 18 117/84 05/09/16 00:26 98.2 F 67 18 154/98 05/08/16 22:00 68 05/08/16 20:18 98.4 F 60 18 136/81 05/08/16 15:00 98.6 F 73 20 144/99 Pulse Ox 05/09/16 07:53 05/09/16 07:41 05/09/16 05:33 99 05/09/16 00:26 99 05/08/16 22:00 05/08/16 20:18 98 05/08/16 15:00 97 - Physical Examination General: No Apparent Distress HEENT: Positive: PERRL Neck: Positive: trachea midline Cardiac: Positive: Reg Rate and Rhythm Lungs: Positive: Decreased Breath Sounds Neuro: Positive: Grossly Intact Abdomen: Positive: Soft, Active Bowel Sounds Skin: Positive: Clear Extremities: Absent: edema - Labs and Meds Coagulation 05/09/16 Range/Units 06:34 PT 18.4 H (12.2-14.9) Sec. INR 1.53 H (0.87-1.13) - Imaging and Cardiology EKG: image reviewed (nonsustained V. tach, 128)
[2016-05-09] MEDS: COUMADIN PO SCH (16:55)
[2016-05-10] MEDS: BIDIL 20/37.5MG PO SCH ×3 (05:24→21:44)
[2016-05-10 06:01] LABS: INR 1.97 (0.87-1.13)
[2016-05-10] MEDS: ULTRAM PO PRN ×2 (07:31→19:37)
[2016-05-10] MEDS: LOPRESSOR PO SCH ×2 (10:52→21:44)
[2016-05-10] MEDS: CORDARONE PO SCH (10:52)
[2016-05-10] MEDS: HALFPRIN EC PO SCH (10:52)
[2016-05-10] MEDS: ZESTRIL PO SCH (10:52)
[2016-05-10] MEDS: PLAVIX PO SCH (10:52)
[2016-05-10] MEDS: HABITROL TD SCH (10:52)
[2016-05-10] MEDS: LOVENOX SUB-Q SCH ×2 (10:53→21:44)
--- NOTE | 2016-05-10 12:40 | Progress Note ---
Assessment and Plan Assessment and plan: Patient is a 41-year-old man with a history of hypertension, coronary artery disease, CHF, hypothyroidism, schizophrenia and old CVA without any deficit who presented with slurred speech and left arm weakness. MRI brain: Acute infarct right lateral MCA and medial right cerebellar hemisphere severe. Echo EF 10%, probable apical thrombus Acute embolic CVA with infarct and apical thrombus, continue anticoagulation Non-STEMI with nonsustained V. tach Dysphagia related to CVA Suicide ideation resolved Await INR to be therapeutic for discharge History Interval history: Patient seen and examined. Follow up on CVA. Overnight uneventful. No cp, sob, n /v or severe headaches. Imaging, old records, testing, labs, nursing notes reviewed. Hospitalist Physical - Physical exam Narrative exam: GEN: WDWN, NAD, AWAKE, ALERT, ORIENTATED CVS: RRR, NORMAL S1S2 LUNGS/CHEST: CTA B, NORMAL CHEST EXPANSION B, GOOD AIR ENTRY B ABD: SOFT NTND, GBS, NO REBOUND OR GUARDING EXT/SKIN: NO SIGNIFICANT EDEMA OR RASH MSK: FROM X 4 EXTREMITIES NEURO: CN 2-12 GROSSLY INTACT, NO new FOCAL DEFICITS PSY: CALM - Constitutional Vitals: Temp Pulse Resp BP Pulse Ox 98.5 F 70 20 128/78 100 05/10/16 07:41 05/10/16 07:41 05/10/16 07:41 05/10/16 07:41 05/10/16 07:41 General appearance: Present: no acute distress, other (dysphagia) Results - Labs CBC & Chem 7: 05/08/16 04:47 05/02/16 04:44 Labs: Laboratory Last Values WBC 10.4 K/mm3 (4.5-11.0) 04/27/16 05:25 RBC 4.85 M/mm3 (3.65-5.03) 04/27/16 05:25 Hgb 13.2 gm/dl (11.8-15.2) 05/08/16 04:47 Hct 41.5 % (35.5-45.6) 05/08/16 04:47 MCV 92 fl (84-94) 04/27/16 05:25 MCH 30 pg (28-32) 04/27/16 05:25 MCHC 32 % (32-34) 04/27/16 05:25 RDW 15.1 % (13.2-15.2) 04/27/16 05:25 Plt Count 266 K/mm3 (140-440) 05/08/16 04:47 Lymph % (Auto) 21.9 % (13.4-35.0) 04/27/16 05:25 [place] % (Auto) 8.0 % (0.0-7.3) H 04/27/16 05:25 Eos % (Auto) 4.8 % (0.0-4.3) H 04/27/16 05:25 Baso % (Auto) 1.0 % (0.0-1.8) 04/27/16 05:25 Lymph # 2.3 K/mm3 (1.2-5.4) 04/27/16 05:25 [place] # 0.8 K/mm3 (0.0-0.8) 04/27/16 05:25 Eos # 0.5 K/mm3 (0.0-0.4) H 04/27/16 05:25 Baso # 0.1 K/mm3 (0.0-0.1) 04/27/16 05:25 Seg Neutrophils % 64.3 % (40.0-70.0) 04/27/16 05:25 Seg Neutrophils # 6.7 K/mm3 (1.8-7.7) 04/27/16 05:25 PT 22.4 Sec. (12.2-14.9) H 05/10/16 04:57 INR 1.97 (0.87-1.13) H 05/10/16 04:57 APTT 30.2 Sec. (24.2-36.6) 04/30/16 11:44 Thrombin Time 16.3 Sec. (15.1-19.6) 04/27/16 05:25 Heparin Anti-Xa Level 0.10 U.I./ml (0.3-0.7) L 05/03/16 18:49 Sodium 140 mmol/L (137-145) 05/02/16 04:44 Potassium 4.2 mmol/L (3.6-5.0) 05/02/16 04:44 Chloride 102.1 mmol/L (98-107) 05/02/16 04:44 Carbon Dioxide 24 mmol/L (22-30) 05/02/16 04:44 Anion Gap 18 mmol/L 05/02/16 04:44 BUN 19 mg/dL (9-20) 05/02/16 04:44 Creatinine 1.6 mg/dL (0.8-1.5) H 05/02/16 04:44 Estimated GFR 48 ml/min 05/02/16 04:44 BUN/Creatinine Ratio 11.87 % 05/02/16 04:44 Glucose 154 mg/dL (75-100) H 05/02/16 04:44 POC Glucose 84 (70-105) 05/05/16 11:46 Calcium 8.7 mg/dL (8.4-10.2) 05/02/16 04:44 Magnesium 1.9 mg/dL (1.7-2.3) 04/29/16 13:31 Total Creatine Kinase 771 units/L (55-170) H 04/27/16 21:13 CK-MB (CK-2) 58.4 ng/mL (0.0-4.0) H 04/27/16 21:13 CK-MB (CK-2) Rel Index 7.5 (0-4) H 04/27/16 21:13 Troponin T 1.240 ng/mL (0.00-0.029) H* 04/28/16 13:40 Triglycerides 101 mg/dL (2-149) 04/27/16 05:25 Cholesterol 178 mg/dL (50-199) 04/27/16 05:25 LDL Cholesterol Direct 112 mg/dL (50-130) 04/27/16 05:25 HDL Cholesterol 46 mg/dL (40-59) 04/27/16 05:25 Cholesterol/HDL Ratio 3.86 % 04/27/16 05:25 TSH 2.220 mlU/mL (0.270-4.200) 04/28/16 04:16 Hepatitis A IgM Ab -1 (NonReactive) 05/05/16 13:37 Hep Bs Antigen Non-reactive (Negative) 05/05/16 13:37 Hep B Core IgM Ab Non-reactive (NonReactive) 05/05/16 13:37 Hepatitis C Antibody Non-reactive (NonReactive) 05/05/16 13:37
--- NOTE | 2016-05-10 13:00 | Progress Note ---
Assessment and Plan - Patient Problems (1) Nonsustained ventricular tachycardia Current Visit: Yes Status: Acute Plan to address problem: Patient's INR today is 1.97. There are no cardiac complaints. He is stable for cardiac discharge, on medical therapy as directed. Subjective Date of service: 05/10/16 Interval history: Patient's INR today is 1.97. There are no cardiac complaints. He is stable for cardiac discharge, on medical therapy as directed. Objective Vital Signs Temp Pulse Pulse Pulse Resp BP BP 05/10/16 07:41 98.5 F 70 20 128/78 05/10/16 07:34 59 L 05/10/16 05:36 97.7 F 61 18 130/75 05/10/16 00:29 97.8 F 67 20 121/63 05/09/16 22:00 65 05/09/16 20:20 98.4 F 62 16 150/93 05/09/16 17:35 98.4 F 68 20 164/97 05/09/16 13:21 97.5 F L 60 20 123/73 Pulse Ox 05/10/16 07:41 100 05/10/16 07:34 05/10/16 05:36 100 05/10/16 00:29 97 05/09/16 22:00 05/09/16 20:20 98 05/09/16 17:35 97 05/09/16 13:21 95 - Physical Examination General: No Apparent Distress HEENT: Positive: PERRL Neck: Positive: trachea midline Cardiac: Positive: Reg Rate and Rhythm Lungs: Positive: Decreased Breath Sounds Neuro: Positive: Grossly Intact Abdomen: Positive: Soft, Active Bowel Sounds Skin: Positive: Clear Extremities: Absent: edema - Labs and Meds Coagulation 05/10/16 Range/Units 04:57 PT 22.4 H (12.2-14.9) Sec. INR 1.97 H (0.87-1.13) - Imaging and Cardiology EKG: image reviewed (nonsustained V. tach, 128)
[2016-05-10] MEDS: COUMADIN PO SCH (17:56)
[2016-05-10] MEDS ORDERED: MILK OF MAGNESIA PO PRN (18:00)
[2016-05-11] MEDS: BIDIL 20/37.5MG PO SCH ×3 (05:19→23:50)
[2016-05-11 06:19] LABS: INR 1.94 (0.87-1.13)
--- NOTE | 2016-05-11 07:44 | Progress Note ---
Assessment and Plan Assessment and plan: Patient is a 41-year-old man with a history of hypertension, coronary artery disease, CHF, hypothyroidism, schizophrenia and old CVA without any prior deficit who presented with slurred speech and left arm weakness. MRI brain: Acute infarct right lateral MCA and medial right cerebellar hemisphere severe. 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 tach: He has LifeVest on, counseling done -Dysphagia related to CVA -Suicide ideation resolved Await INR to be therapeutic for discharge New issue: accelerated hypertension: added norvasc 5mg/d INR 1.94 today History Interval history: Patient seen and examined. Follow up on CVA. Overnight uneventful. No cp, sob, n /v or severe headaches. Imaging, old records, testing, labs, nursing notes reviewed. Hospitalist Physical - Physical exam Narrative exam: GEN: WDWN, NAD, AWAKE, ALERT, ORIENTATED CVS: RRR, NORMAL S1S2 LUNGS/CHEST: CTA B, NORMAL CHEST EXPANSION B, GOOD AIR ENTRY B ABD: SOFT NTND, GBS, NO REBOUND OR GUARDING EXT/SKIN: NO SIGNIFICANT EDEMA OR RASH MSK: FROM X 4 EXTREMITIES NEURO: CN 2-12 GROSSLY INTACT, NO new FOCAL DEFICITS PSY: CALM - Constitutional Vitals: Temp Pulse Resp BP Pulse Ox 97.6 F 75 21 178/110 97 05/11/16 05:16 05/11/16 05:16 05/11/16 05:16 05/11/16 05:16 05/11/16 05:16 General appearance: Present: no acute distress, other (dysphagia) Results - Labs CBC & Chem 7: 05/08/16 04:47 05/02/16 04:44 Labs: Laboratory Last Values WBC 10.4 K/mm3 (4.5-11.0) 04/27/16 05:25 RBC 4.85 M/mm3 (3.65-5.03) 04/27/16 05:25 Hgb 13.2 gm/dl (11.8-15.2) 05/08/16 04:47 Hct 41.5 % (35.5-45.6) 05/08/16 04:47 MCV 92 fl (84-94) 04/27/16 05:25 MCH 30 pg (28-32) 04/27/16 05:25 MCHC 32 % (32-34) 04/27/16 05:25 RDW 15.1 % (13.2-15.2) 04/27/16 05:25 Plt Count 266 K/mm3 (140-440) 05/08/16 04:47 Lymph % (Auto) 21.9 % (13.4-35.0) 04/27/16 05:25 [place] % (Auto) 8.0 % (0.0-7.3) H 04/27/16 05:25 Eos % (Auto) 4.8 % (0.0-4.3) H 04/27/16 05:25 Baso % (Auto) 1.0 % (0.0-1.8) 04/27/16 05:25 Lymph # 2.3 K/mm3 (1.2-5.4) 04/27/16 05:25 [place] # 0.8 K/mm3 (0.0-0.8) 04/27/16 05:25 Eos # 0.5 K/mm3 (0.0-0.4) H 04/27/16 05:25 Baso # 0.1 K/mm3 (0.0-0.1) 04/27/16 05:25 Seg Neutrophils % 64.3 % (40.0-70.0) 04/27/16 05:25 Seg Neutrophils # 6.7 K/mm3 (1.8-7.7) 04/27/16 05:25 PT 22.2 Sec. (12.2-14.9) H 05/11/16 05:13 INR 1.94 (0.87-1.13) H 05/11/16 05:13 APTT 30.2 Sec. (24.2-36.6) 04/30/16 11:44 Thrombin Time 16.3 Sec. (15.1-19.6) 04/27/16 05:25 Heparin Anti-Xa Level 0.10 U.I./ml (0.3-0.7) L 05/03/16 18:49 Sodium 140 mmol/L (137-145) 05/02/16 04:44 Potassium 4.2 mmol/L (3.6-5.0) 05/02/16 04:44 Chloride 102.1 mmol/L (98-107) 05/02/16 04:44 Carbon Dioxide 24 mmol/L (22-30) 05/02/16 04:44 Anion Gap 18 mmol/L 05/02/16 04:44 BUN 19 mg/dL (9-20) 05/02/16 04:44 Creatinine 1.6 mg/dL (0.8-1.5) H 05/02/16 04:44 Estimated GFR 48 ml/min 05/02/16 04:44 BUN/Creatinine Ratio 11.87 % 05/02/16 04:44 Glucose 154 mg/dL (75-100) H 05/02/16 04:44 POC Glucose 84 (70-105) 05/05/16 11:46 Calcium 8.7 mg/dL (8.4-10.2) 05/02/16 04:44 Magnesium 1.9 mg/dL (1.7-2.3) 04/29/16 13:31 Total Creatine Kinase 771 units/L (55-170) H 04/27/16 21:13 CK-MB (CK-2) 58.4 ng/mL (0.0-4.0) H 04/27/16 21:13 CK-MB (CK-2) Rel Index 7.5 (0-4) H 04/27/16 21:13 Troponin T 1.240 ng/mL (0.00-0.029) H* 04/28/16 13:40 Triglycerides 101 mg/dL (2-149) 04/27/16 05:25 Cholesterol 178 mg/dL (50-199) 04/27/16 05:25 LDL Cholesterol Direct 112 mg/dL (50-130) 04/27/16 05:25 HDL Cholesterol 46 mg/dL (40-59) 04/27/16 05:25 Cholesterol/HDL Ratio 3.86 % 04/27/16 05:25 TSH 2.220 mlU/mL (0.270-4.200) 04/28/16 04:16 Hepatitis A IgM Ab -1 (NonReactive) 05/05/16 13:37 Hep Bs Antigen Non-reactive (Negative) 05/05/16 13:37 Hep B Core IgM Ab Non-reactive (NonReactive) 05/05/16 13:37 Hepatitis C Antibody Non-reactive (NonReactive) 05/05/16 13:37
[2016-05-11] MEDS: LOVENOX SUB-Q SCH ×3 (08:49→23:51)
[2016-05-11] MEDS: LOPRESSOR PO SCH ×3 (08:50→23:50)
[2016-05-11] MEDS: ULTRAM PO PRN ×2 (08:50→14:43)
[2016-05-11] MEDS: CORDARONE PO SCH ×2 (08:50→09:20)
[2016-05-11] MEDS: ZESTRIL PO SCH ×2 (08:51→09:21)
[2016-05-11] MEDS: PLAVIX PO SCH ×2 (08:51→09:21)
[2016-05-11] MEDS: HALFPRIN EC PO SCH ×2 (08:51→09:20)
[2016-05-11] MEDS: HABITROL TD SCH ×2 (08:51→09:20)
[2016-05-11] MEDS: NORVASC PO SCH ×2 (08:52→09:21)
--- NOTE | 2016-05-11 10:26 | Progress Note ---
Assessment and Plan Acute CVA NSTEMI Cardiac cath findings: 1. Severe 3 vessel disease 2. Patent RIOS-LAD 3. Occluded sequential SVG to circ OM and PLV br 4. Patent SVG to Ac marginal branch of RCA 5. Patent mid RCA stent 6. Severe diffuse disease of distal/terminal branches of the RCA and circumflex, no amenable to revascularization. NSVT -normal TSH Hx of CAD s/p remote CABG Ischemic Cardiomyopathy Echocardiogram shows a severe cardiomyopathy EF 15% [facility]vest inplace Small apical left ventricular thrombus on echo this admission Hypertension Suicidal ideation -was inpatient at [facility] Recommend: Continue medical therapy for CAD and heart failure. Continue Coumadin for LV apex thrombus. Patient's INR today is 1.94. Stable, cardiac santos, for discharge home today. Subjective Date of service: 05/11/16 Interval history: Patient has no complaints. Objective Vital Signs Temp Pulse Pulse Pulse Resp BP BP 05/11/16 08:52 89 140/86 05/11/16 08:51 89 140/86 05/11/16 08:50 86 140/89 05/11/16 07:46 98.1 F 86 20 140/89 05/11/16 05:16 97.6 F 75 21 178/110 05/11/16 00:00 98.1 F 76 20 143/91 05/10/16 22:30 73 05/10/16 20:21 98.2 F 73 21 167/111 05/10/16 18:15 98.1 F 72 20 05/10/16 12:35 98.5 F 68 20 BP Pulse Ox 05/11/16 08:52 05/11/16 08:51 05/11/16 08:50 05/11/16 07:46 98 05/11/16 05:16 97 05/11/16 00:00 97 05/10/16 22:30 05/10/16 20:21 99 05/10/16 18:15 166/101 05/10/16 12:35 143/102 98 - Physical Examination General: No Apparent Distress HEENT: Positive: PERRL Neck: Positive: trachea midline Cardiac: Positive: Reg Rate and Rhythm Lungs: Positive: Decreased Breath Sounds Extremities: Absent: edema - Labs and Meds Coagulation 05/11/16 Range/Units 05:13 PT 22.2 H (12.2-14.9) Sec. INR 1.94 H (0.87-1.13) - Imaging and Cardiology EKG: image reviewed (nonsustained V. tach, 128)
--- NOTE | 2016-05-11 13:25 | Discharge Summary ---
Providers - Providers Date of Admission: 04/27/16 06:36 Date of discharge: 05/11/16 Attending physician: MEGAN BOLIVAR 04/27/16 08:07 Speech Therapy Evaluation and Treat [CONS] Urgent Reason For Exam: failed swallow screen 04/27/16 08:20 Consult to Physician [CONS] Routine Consulting Provider: RAMONA SANTOYO Reason For Exam: CVA Place consult to:: [facility] Notified:: yes Phone number called:: [phone] Was contact made?: Yes If yes, spoke with:: left message as instructed Time called:: 08:41 04/28/16 10:13 psychiatry consult [Consult to Mental Health] [CONS] Routine Reason For Exam: pt [address] consult to:: yes Notified:: yes 04/29/16 10:03 Consult to Physician [CONS] Routine Consulting Provider: LEÓN ABERNATHY Reason For Exam: CVA Place consult to:: Dr. Abernathy Notified:: Sudha BECKWITH Phone number called:: Was contact made?: Yes If yes, spoke with:: [facility] office Time called:: 10:14 04/29/16 12:08 Consult to Physician [CONS] Routine Consulting Provider: LEÓN ABERNATHY Reason For Exam: stroke Place consult to:: Dr. Abernathy Notified:: Sudha BECKWITH Phone number called:: Was contact made?: Yes If yes, spoke with:: [facility] Time called:: 10:14 Comment:: Duplicate consult. 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 MRI brain: Acute infarct right lateral MCA and medial right cerebellar hemisphere severe. 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 tach: He has LifeVest on, counseling done -Dysphagia related to CVA -Suicide ideation resolved Await INR to be therapeutic for discharge New issue: accelerated hypertension: added norvasc 5mg/d, will increase lisinopril to 20mg instead of adding norvasc per Cardiology INR 1.94 today per Cardiology, "Recommend: Continue medical therapy for CAD and heart failure. Continue Coumadin for LV apex thrombus. Patient's INR today is 1.94. Stable, cardiac bolivar, for discharge home today." time of discharge 36 minutes. Disposition: DISCHARGED TO HOME OR SELFCARE Core Measure Documentation - Palliative Care Palliative Care/ Comfort Measures: Not Applicable - Core Measures Any of the following diagnoses?: acute SD - VTE Discharge Requirements Deep Vein Thrombosis/Pulmonary Embolism Present on Admission: No Has pt received <5 days of overlap therapy or INR<2.0: No Anticoagulant overlap therapy prescribed at discharge: No Contraindication No Overlap Therapy order at DC: Not Indicated - Acute SD Discharge Requirements Aspirin at discharge: Yes GRACIE/ARB for LVSD if EF <40%: Yes Beta jennifer at discharge: Yes Statin for LDL = or >100 mg/dl on DC: Yes Exam - Physical Exam Narrative exam: GEN: WDWN, NAD, AWAKE, ALERT, ORIENTATED CVS: RRR, NORMAL S1S2 LUNGS/CHEST: CTA B, NORMAL CHEST EXPANSION B, GOOD AIR ENTRY B ABD: SOFT NTND, GBS, NO REBOUND OR GUARDING EXT/SKIN: NO SIGNIFICANT EDEMA OR RASH MSK: FROM X 4 EXTREMITIES NEURO: CN 2-12 GROSSLY INTACT, NO new FOCAL DEFICITS PSY: CALM - Constitutional Vitals: Temp Pulse Resp BP Pulse Ox 98.7 F 75 20 153/102 98 05/11/16 11:47 05/11/16 11:47 05/11/16 11:47 05/11/16 11:47 05/11/16 11:47 Plan Activity: advance as tolerated (no strenous activites until cleared by PCP. He) , up only with assistance, fall precautions Diet: low salt Follow up with: GUS GERARDO MD [Primary Care Provider] - 7 Days CL RUTHERFORD MD [Staff Physician] - 7 Days Forms: Warfarin Discharge Instruction Prescriptions: AtorvaSTATin [Lipitor] 40 mg PO QHS #30 tablet Aspirin EC [Aspirin Enteric Coated TAB] 81 mg PO QDAY #30 tablet Isosorb Dinit/Hydralazine [Bidil 20/37.5MG] 1 each PO Q8HR #90 tablet Amiodarone [Cordarone 200 MG TAB] 200 mg PO DAILY #30 tablet Warfarin [Coumadin] 8 mg PO DAILY@1700 #30 tablet Nicotine [Habitrol] 14 mg TD QDAY #30 patch Metoprolol [Lopressor TAB] 50 mg PO BID #60 tablet Famotidine [Pepcid] 20 mg PO BID #60 tablet Clopidogrel [Plavix] 75 mg PO QDAY #30 tablet traMADol [Ultram 50 MG tab] 50 mg PO Q4H PRN #30 tablet PRN Reason: Pain , Severe (7-10) Lisinopril [Zestril TAB] 20 mg PO QDAY #30 tablet
[2016-05-11] MEDS ORDERED: ZESTRIL PO SCH ×2 (14:00)
[2016-05-11] MEDS ORDERED: ZESTRIL PO ONE (15:00)
[2016-05-11] MEDS ORDERED: COUMADIN PO SCH (17:00)
[2016-05-11] MEDS: TYLENOL PO PRN (19:42)
[2016-05-12] MEDS: BIDIL 20/37.5MG PO SCH (05:53)
[2016-05-12] MEDS: TYLENOL PO PRN (05:54)
[2016-05-12 07:27] VITALS: BP 126/78
[2016-05-12] MEDS ORDERED: ZESTRIL PO SCH (10:00)
[2016-05-12] MEDS: HABITROL TD SCH (10:34)
[2016-05-12] MEDS: CORDARONE PO SCH (10:35)
[2016-05-12] MEDS: PLAVIX PO SCH (10:35)
[2016-05-12] MEDS: HALFPRIN EC PO SCH (10:35)
[2016-05-12] MEDS: LOVENOX SUB-Q SCH (10:35)
[2016-05-12] MEDS: LOPRESSOR PO SCH (10:35)
== END 2016-05-12 11:48 | disposition home or self-care (01) | DRG 280 ==
LOC: ED 05:19 → 4A 06:36 → UNDODISIN 05-11 19:44
PROVIDERS: ADMIT Internal Medicine; ATTEND Internal Medicine
PROC: B2151ZZ Fluoroscopy of Left Heart using Low Osmolar Contrast (ICD-10-PCS; principal; 2016-04-30)
PROC: B2111ZZ Fluoroscopy of Multiple Coronary Arteries using Low Osmolar Contrast (ICD-10-PCS; principal; 2016-04-30)
PROC: 4A023N8 Measurement of Cardiac Sampling and Pressure, Bilateral, Percutaneous Approach (ICD-10-PCS; principal; 2016-04-30)
DX: T82.868A Thrombosis due to vascular prosthetic devices, implants and grafts, initial encounter (principal); I63.9 Cerebral infarction, unspecified; I21.4 Non-ST elevation (NSTEMI) myocardial infarction; I50.21 Acute systolic (congestive) heart failure; I47.2 Ventricular tachycardia; R45.851 Suicidal ideations; G81.94 Hemiplegia, unspecified affecting left nondominant side; E78.00 Pure hypercholesterolemia, unspecified; I25.10 Atherosclerotic heart disease of native coronary artery without angina pectoris; E03.9 Hypothyroidism, unspecified; F20.9 Schizophrenia, unspecified; E78.5 Hyperlipidemia, unspecified; R13.10 Dysphagia, unspecified; R47.1 Dysarthria and anarthria; R26.9 Unspecified abnormalities of gait and mobility; I25.5 Ischemic cardiomyopathy; Y83.2 Surgical operation with anastomosis, bypass or graft as the cause of abnormal reaction of the patient, or of later complication, without mention of misadventure at the time of the procedure; F17.200 Nicotine dependence, unspecified, uncomplicated; I11.0 Hypertensive heart disease with heart failure; Z86.73 Personal history of transient ischemic attack (TIA), and cerebral infarction without residual deficits; I25.2 Old myocardial infarction; Z82.49 Family history of ischemic heart disease and other diseases of the circulatory system; Y92.89 Other specified places as the place of occurrence of the external cause; Z71.6 Tobacco abuse counseling
CPT/HCPCS: 36415; 70450; 70496; 70498; 70544; 70551; 74230; 80048; 80061; 80074; 82550; 82553; 82962; 83735; 84443; 84484; 85014; 85018; 85025; 85049; 85520; 85610; 85670; 85730; 93005; 93010; 93306; 93455; 93880; 94760; 96372; 96374; 96375; 99406; A9270-GY; C1760; C1894; J0282; J0360; J0583; J1644; J1650; J2250; J2405; J3010; J7030; J7040; Q9967